=== PATIENT | female | born 1945 | race Caucasian/White ===

== ENCOUNTER 2017-11-16 18:50 | Emergency (ER) | payer MEDICARE, OTHER ==
[2014-06-28 11:19] VITALS: BMI 26.0
[~2017-11-16 18:50] MED LIST: BAYER CHEWABLE81 MG PO; CYCLOBENZAPRINE10 MG PO; CYCLOBENZAPRINE5 MG; FENOFIBRATE134 MG PO; FISH OIL 1,2001 CA1 PO; MELATONIN 3 MG1 TAB; PLAVIX75 MG PO; PRILOSEC20 MG PO; ZIAC 10-6.25 MG1 TAB PO; ZOCOR40 MG PO
[2017-11-16 20:24] LABS: BASOPHILS 0.3 % (0-2); EOSINOPHILS 0 % (0-7); HEMATOCRIT 42.4 % (36.0-48.0); IMMATURE GRANULOCYTES 0.3 % (0-5); LYMPHOCYTES 1.6 % (15-50); MCH 29.2 pg (26.0-34.0); MCV 88.3 fL (80.0-100.0); MEAN PLATELET VOLUME 11.1 fL (7.4-10.4); MONOCYTES 5.9 % (2-11); NEUTROPHILS 91.9 % (40-80); RDW 13.9 % (11.5-14.5); WBC 9.3 10x3/uL (4.8-10.8)
[2017-11-16 20:29] LABS: PLATELET COUNT 146 10x3/uL (130-400)
[2017-11-16 20:36] LABS: ALBUMIN 3.4 g/dL (3.4-5.0); ANION GAP 12.8 mmol/L (8-16); BILIRUBIN - TOTAL 0.85 mg/dL (0.2-1.3); CALCIUM 9.7 mg/dL (8.5-10.1); CREATININE - SERUM 2.5 mg/dL (0.6-1.3); POTASSIUM - SERUM 3.8 mmol/L (3.5-5.1); PROTEIN - SERUM 6.1 g/dL (6.4-8.2)
== END 2017-11-16 22:19 | disposition home or self-care (01) ==
LOC: D.ER 18:50
PROVIDERS: Physician Assistant Medical
DX: B34.9 Viral infection, unspecified (principal); R60.0 Localized edema; I10 Essential (primary) hypertension; J44.9 Chronic obstructive pulmonary disease, unspecified; F17.200 Nicotine dependence, unspecified, uncomplicated; I47.1 Supraventricular tachycardia

== ENCOUNTER → 2017-12-02 18:18 | Outpatient (CLI) | payer MEDICARE, OTHER ==
[2014-06-28 11:19] VITALS: BMI 26.0
[2017-12-02 18:57] LABS: ANION GAP 12.2 mmol/L (8-16); CALCIUM 9.7 mg/dL (8.5-10.1); CARBON DIOXIDE 35.7 mmol/L (21.0-32.0); CREATININE - SERUM 2.9 mg/dL (0.6-1.3); POTASSIUM - SERUM 3.9 mmol/L (3.5-5.1)
== END | disposition home or self-care (01) ==
LOC: D.LABREF 18:18
PROVIDERS: Nurse Practitioner
DX: I10 Essential (primary) hypertension (principal)

== ENCOUNTER 2018-01-03 08:40 | Outpatient (CLI) | payer MEDICARE, OTHER ==
[~2018-01-03] VITALS: Ht 157.5 cm; Wt 62.9 kg
--- NOTE | ~2018-01-03 | OP ---
PATIENT NAME: NEY CORRAL MEDICAL RECORD: [id number] :45 LOCATION:D.CAT ADMISSION DATE: SURGEON: ADDISON MEDRANO MD DATE OF OPERATION: 01/03/2018 PROCEDURES: 1. PTCA stent, LAD. 2. PTCA stent, left circumflex. 3. PTCA, LAD diagonal. 4. Left heart catheterization. 5. Selective coronary angiography. 6. Left ventriculogram. INDICATION: Angina and coronary artery disease. PROCEDURE IN DETAIL: After informed consent was obtained and after detailed explanation of risks, benefits as well as alternative therapies, the patient elected to proceed with angiogram and angioplasty. The right femoral area was prepped and draped in normal sterile fashion. The right femoral artery was cannulated via modified Seldinger technique with placement of 6-Luxembourgish sheath. All catheters exchanged through this sheath. FINDINGS: The left ventriculogram was performed in standard 30-degree MONIQUE view, reveals good cardiac wall motion throughout all segments. Overall ejection fraction 55% to 60%. SELECTIVE CORONARY ANGIOGRAPHY: 1. Left main showed no significant angiographic disease. 2. Left anterior descending has 80% stenosis in the proximal aspect. 3. Left circumflex has 80% stenosis proximally. 4. The right coronary has previously placed stents, these are widely patent with no significant restenosis. No disease elsewise throughout. PTCA STENT OF THE LAD AND CIRCUMFLEX: The LAD was addressed with a 3.0 x 18 mm Alberto, the circumflex with a 2.5 x 8 mm [place]. There was plaque shift into the diagonal. This was ballooned with a 2.5 balloon. Result was 0% residual throughout. OVERALL IMPRESSION: Successful percutaneous transluminal coronary angioplasty stent of the left anterior descending and circumflex, both going from 80% initial stenosis to 0% residual. TRANSINT:[id number] Voice Confirmation ID: [id number] DOCUMENT ID: [id number] ADDISON MEDRANO MD CC: [id number] DICTATION DATE: 01/03/18 1244 VOCATIONAL NURSING INSTRUCTOR: 01/03/18 1257 [facility] [address] [place] [address]
--- NOTE | ~2018-01-03 | HEMODYNAMI ---
PATIENT:NEY CORRAL MEDICAL RECORD: [id number] : 45 LOCATION:D.CAT ADMISSION DATE: 01/03/18 Generatedon:01/03/201812:14 Patient name: NEY CORRAL Patient #: [id number] SSN: : 1945 Date of study: 01/03/2018 Page: Of Hemodynamic Procedure Report Patient Data Patient Demographics Procedure consent was obtained First Name: NEY Gender: Female Last Name: ELLIS : 1945 [facility] Initial: K Age: 72 year(s) Patient #: [id number] Race: Unknown Additional ID: [id number] Contact details Address: [address] [place] [address] rd State: [place] City: [place] Zip code: [address] Past Medical History Allergies: No known allergies Admission Admission Data Admission Date: 01/03/2018 Admission Time: 8:40 Height (in.): 5.2 BSA: 0.27 (m2) Height (cm.): 13.21 BMI: 3588.15 (kg/m2) Weight (lbs.): 138 Weight (kg.): 62.6 Lab Results Lab Result Date: 01/03/2018 Lab Result Time: 10:55 Biochemistry Name Units Result Min Max BUN mg/dl 61 --(----)-* 7 18 Creatinine mg/dl 2.7 --(----)-* 0.6 1.3 CBC Name Units Result Min Max Hematocrit % 41.6 -*(----)-- 42 54 Hemoglobin g/dl 13.4 -*(----)-- 13.5 17.5 Procedure Procedure Types Cath Procedure Diagnostic Procedure [facility] w/Coronaries PCI Procedure Coronary Stent Coronary Stent Initial x2 PTCA PTCA Additional Miscellaneous Procedures Moderate Sedation up to 15 minutes Procedure Description Procedure Date Procedure Date: 01/03/2018 Procedure Start Time: 11:48 Procedure End Time: 12:10 Procedure Staff Name Function Jaziel Barragan RN Power And Recovery Superintendent Yaquelin Li RN Nurse Rich Chavez MD Performing Physician Sonya Penny RT Scrub Oscar Peres RT Monitor Procedure Data Cath Procedure Fluoroscopy Diagnostic fluoroscopy Total fluoroscopy Time: 6.9 time: 6.9 min min Diagnostic fluoroscopy Total fluoroscopy dose: dose: 299.46 mGy 299.46 mGy Contrast Material Contrast Material Type Amount (ml) Isovue 300 113 Entry Location Entry Primary Successful Side Size Upsize Upsize Entry Closure Succes sful Closure Location (Fr) 1 (Fr) 2 (Fr) Remarks Device Remarks Femoral Right 5 Fr 6 Fr Exoseal artery Short Estimated blood loss: 10 ml Diagnostic catheters Device Type Used For End Catheter Placement MULTIPACK Pigtail 5 Fr Procedure catheter MULTIPACK JL 4.0 5Fr Procedure catheter MULTIPACK 3DRC 5Fr Procedure catheter Procedure Complications No complications Procedure Medications Medication Administration Route Dosage Oxygen NC 2 l/min Lidocaine 2% added to field 20 Heparin Flush Bag added to field 2 bags (1000units/500ml NS) 0.9% NaCl I.V. 100 ml/hr Versed I.V. 1 mg Fentanyl I.V. 50 mcg Versed I.V. 1 mg Fentanyl I.V. 50 mcg 0.9% NaCl I.V. bolus 300 ml Heparin Bolus I.V. 4000 units Versed I.V. 1 mg Hemodynamics Rest BSA: 0.27 (m2) HGB: 13.4 (g/dl) O2 Consumption: Estimated: 24.16 (ml/min) O2 Con sumption indexed: Estimated:89.48 (ml/min/m) Heart Rate: 64 (bpm) Pressure Samples Time Site Value (mmHg) Purpose Heart Use Rate(bpm) 11:50 LV 147/4,44 Snapshot 62 Snapshots Pre Cath Intra NCS Post Cath Vital Signs Time Heart Resp SPO2 etCO2 NIBP (mmHg) Rhythm Pain Sedation Rate (ipm) (%) (mmHg) Status Level (bpm) 11:28:39 72 17 97 Measuring NSR 0 (11) 10(A) , No pain 11:34:09 63 16 98 0 161/74(132) NSR 0 (11) 10(A) , No pain 11:38:35 62 15 98 0 160/79(144) NSR 0 (11) 10(A) , No pain 11:43:00 62 13 98 0 157/82(130) NSR 0 (11) 10(A) , No pain 11:47:22 61 14 99 0 160/83(143) NSR 0 (11) 10(A) , No pain 11:51:46 61 14 100 0 162/79(126) NSR 0 (11) 10(A) , No pain 11:56:12 59 16 98 0 161/74(125) NSR 0 (11) 9(A) , No pain 12:00:32 60 15 98 0 146/77(116) NSR 0 (11) 9(A) , No pain 12:04:52 59 15 99 0 159/71(95) NSR 0 (11) 9(A) , No pain 12:09:19 59 15 98 0 173/78(138) NSR 0 (11) 10(A) , No pain Medications Time Medication Route Dose Verified Delivered Reason Notes Effectiveness by by 11:16:09 0.9% NaCl I.V. 300 Rich Buffie Per physician bolus ml Scott Li RN 11:16:32 Oxygen NC 2 Rich Buffie used for l/min Scott Li RN procedure 11:16:39 Lidocaine 2% added 20ml Rich Rich for local to vial Scott Chavez MD anesthetic field 11:16:45 Heparin Flush added 2 Rich Rich used for Bag to bags Scott Chavez MD procedure (1000units/500ml field NS) 11:47:14 Versed I.V. 1 mg Rich Buffie for sedation Scott Li RN 11:47:22 Fentanyl I.V. 50 Rich Buffie for sedation mcg Scott Li RN 11:49:34 Versed I.V. 1 mg Rich Buffie for sedation Scott Li RN 11:49:38 Fentanyl I.V. 50 Rich Buffie for sedation mcg Scott Li RN 11:51:23 0.9% NaCl I.V. 100 Rich Buffie Per physician ml/hr Scott Li RN 11:54:38 Heparin Bolus I.V. 4000 Rich Buffie for verifi ed units Scott Li RN anticoagulation with dr chavez 11:58:44 Versed I.V. 1 mg Rich Buffie for sedation Scott Li RN Procedure Log Time Note 10:58:10 Patient Height : 5.2 inches 10:58:13 Patient Weight : 138 lbs 10:58:38 Plan of Care:Hemodynamics will remain stable., Cardiac rhythm will remain stable., Comfort level will be maintained., Respiratory function will remain adequate., Patient/ family verbilizes understanding of procedure., Procedure tolerated without complication., Recovers from procedure without complications.. 10:58:39 Time tracking: Regular hours 10:58:41 Signed procedure consent form obtained from patient. 10:59:45 H&P Date Dictated: 01/02/2018 Within 30 days and on chart., H&P Addendum completed by physician on day of procedure. (MUST COMPLETE FOR ALL OUTPATIENTS). 11:10:56 Jaziel Barragan RN sent for patient. Start room use. 11:16:09 0.9% NaCl 300 ml I.V. bolus was administered by Yaquelin Li RN; Per physician; 11:16:32 Oxygen 2 l/min NC was administered by Yaquelin Li RN; used for procedure; 11:16:39 Lidocaine 2% 20ml vial added to field was administered by Rich Chavez MD; for local anesthetic; 11:16:45 Heparin Flush Bag (1000units/500ml NS) 2 bags added to field was administered by Rich Chavez MD; used for procedure; 11:17:30 Patient received from Pre/Post Procedure Room to CCL 3 Alert and oriented. Tansferred to table in Supine position. 11:17:34 Warm blankets applied, and ignacio hugger turned on for patient comfort. 11:17:35 Correct patient and procedure confirmed by team. 11:17:36 ECG and BP/O2 sat monitors applied to patient. 11:17:40 Snore? Yes 11:17:42 Sleep apnea? No 11:17:44 Deviated septum? No 11:17:46 Opens mouth fully? Yes 11:17:51 Sticks out tongue? Yes 11:17:54 Airway obstruction? No ? 11:17:58 Dentures? Yes in tight 11:26:50 Vital chart was started 11:30:05 Diagnostic Cath status Elective 11:30:07 Baseline sample Acquired. 11:30:10 Rhythm: sinus rhythm 11:30:12 Full Disclosure recording started 11:30:13 Pre-op teaching completed and patient verbalized understanding. 11:30:13 Pre-procedure instructions explained to patient. 11:30:14 Family in waiting room. 11:30:16 Patient NPO since Midnight. 11:30:22 Patient allergic to No known allergies 11:30:25 Is the patient allergic to Iodine/contrast media? No. 11:30:28 Is patient on blood thinner?Yes 11:30:31 ACC The patient was administered the following blood thiners within the last 24 hours: ACCPlavix 11:30:33 Patient diabetic? No. 11:30:37 Previous problem with sedation/anesthesia? No ? 11:30:38 Snore? Yes 11:30:39 Deviated septum? No 11:30:39 Sleep apnea? No 11:30:40 Opens mouth fully? Yes 11:30:41 Sticks out tongue? Yes 11:30:43 Airway obstruction? No ? 11:30:49 Dentures? Yes in tight 11:31:03 Pre procedure: right dorsailis pedis pulse Doppler 11:31:06 Patient pain scale 0/10 ?. 11:31:12 IV patent on arrival in left wrist with 0.9% NaCl at [facility]. 11:34:06 Lab Result : Hemoglobin 13.4 g/dl 11:34:06 Lab Result : Hematocrit 41.6 % 11:34:06 Lab Result : BUN 61 mg/dl 11:34:06 Lab Result : Creatinine 2.7 mg/dl 11:34:39 Lab results completed and on chart. 11:34:42 Right groin area was prepped with chlora-prep and draped in sterile fashion 11:34:43 Sharps counted by scrub and verified by R.N. 11:34:43 Alarms reviewed by R. N. 11:34:46 Use device set Femoral Dx 11:34:47 ACIST Syringe (35122) opened to sterile field. 11:34:48 Medline Cath Pack ([id number]) opened to sterile field. 11:34:49 Bag Decanter (2002) opened to sterile field. 11:34:50 ACIST Manifold (05239) opened to sterile field. 11:34:50 ACIST Hand Control (78664) opened to sterile field. 11:34:52 DIAGNOSTIC Multipack 5Fr catheter set (DO8528) opened to sterile field. 11:34:53 PERCUTANEOUS ENTRY 19GA needle opened to sterile field. 11:34:53 Tegaderm 4 x 4 (1626W) opened to sterile field. 11:34:54 DIAGNOSTIC WIRE .035 260cm J wire (113180) opened to sterile field. 11:34:54 SHEATH 5FR [place] (JYQ163) opened to sterile field. 11:46:50 Physician arrived 11:46:51 Final Timeout: patient, procedure, and site verified with staff and physician. All members of the team are in agreement. 11:46:51 --------ALL STOP TIME OUT------ 11:46:53 Right groin site verified by team. 11:46:55 Physical assessment completed. ASA score P 2 - A patient with mild systemic disease as per Rich Chavez MD. 11:46:58 Sedation plan: IV Moderate Sedation Medication:Versed, Fentanyl 11:47:14 Versed 1 mg I.V. was administered by Yaquelin Li RN; for sedation; 11:47:22 Fentanyl 50 mcg I.V. was administered by Yaquelin Li RN; for sedation; 11:48:55 Procedure started. 11:48:57 Local anesthetic to right femoral artery with Lidocaine 2% by Rich Chavez MD.INITIAL ACCESS ONLY 11:49:34 A 5 Fr sheath was inserted into the Right Femoral artery 11:49:34 Versed 1 mg I.V. was administered by Yaquelin Li RN; for sedation; 11:49:38 Fentanyl 50 mcg I.V. was administered by Yaquelin Li RN; for sedation; 11:50:08 A MULTIPACK Pigtail 5 Fr catheter was advanced over the wire and used for Procedure. 11:50:46 LV gram done using MONIQUE 11:50:49 Injector settings: Ml/sec: 10, Volume: 20, 11:50:53 EF : 55 % 11:50:54 Catheter exchanged over wire. 11:50:59 A MULTIPACK JL 4.0 5Fr catheter was advanced over the wire and used for Procedure. 11:51:23 0.9% NaCl 100 ml/hr I.V. was administered by Yaquelin Li RN; Per physician; 11:51:24 LCA angiography performed. 11:51:39 INFLATOR Merit BasixCompak (AA3546) opened to sterile field. 11:51:42 SHEATH 6FR [place] (PUX856) opened to sterile field. 11:51:52 Catheter exchanged over wire. 11:51:58 A MULTIPACK 3DRC 5Fr catheter was advanced over the wire and used for Procedure. 11:52:22 RCA angiography performed. 11:52:51 Catheter removed. 11:53:00 Sheath upsized to a 6 Fr Short. 11:54:38 Heparin Bolus 4000 units I.V. was administered by Yaquelin Li RN; for anticoagulation; verified with dr chavez 11:55:18 GUIDE 6FR XBLAD 3.5 catheter ([id number]) opened to sterile field. 11:55:40 GRAPHIX 182cm guide wire ([id number]) opened to sterile field. 11:55:54 6 Fr xblad 3.5 guide catheter was inserted over the wire 11:56:07 graphix wire advanced. 11:56:20 Wire advanced across lesion. 11:56:48 Inflation Number: 1 A RIRI RX 3.0 x 18 stent ([id number]) was prepped and advanced across the Mid LAD. The stent was deployed at 17 JONNY for 0:10 (min:sec). 11:57:47 Stent catheter was removed intact over wire. 11:58:39 Wire removed. 11:58:44 Versed 1 mg I.V. was administered by Yaquelin Li RN; for sedation; 11:58:46 CHOICE PT Extra Support 182cm wire ([id number]) opened to sterile field. 11:58:56 choice pt es wire advanced. 11:59:34 wire directed to diag 11:59:35 Wire advanced across lesion. 12:00:39 Inflation number: 1 A EUPHORA 2.5 x 10 Balloon ([id number]) was prepped and advanced across the 1st Diag, then inflated to 17 JONNY for 0:10 (min:sec). 12:00:48 Wire redirected to lad. 12:01:00 Inflation number: 2 The EUPHORA 2.5 x 10 Balloon ([id number]) was reinflated across the 1st Diag, to 17 JONNY for 0:10 (min:sec). 12:01:05 Balloon removed over the wire. 12:02:51 Wire redirected to circ. 12:03:13 Inflation number: 1 The EUPHORA 2.5 x 10 Balloon ([id number]) was reinflated across the Prox CX, to 9 JONNY for 0:10 (min:sec). 12:03:21 Balloon removed over the wire. 12:04:40 Inflation Number: 2 A RIRI RX 2.5 x 08 stent ([id number]) was prepped and advanced across the Prox CX. The stent was deployed at 13 JONNY for 0:10 (min:sec). 12:05:30 Wire removed. 12:05:30 Stent catheter was removed intact over wire. 12:05:31 Guide catheter removed. 12:05:37 EXOSEAL 6Fr (EX600) opened to sterile field. 12:05:44 Sheath removed intact; hemostasis achieved with Exoseal to the Right Femoral artery. 12:05:45 Procedure ended.(Physican Out) 12:07:46 Fluoroscopy time 06.90 minutes. 12:07:53 Fluoroscopy dose: 299.46 mGy 12:07:53 Flurop Dose total: 299.46 12:08:18 Contrast amount:Isovue 300 113ml. 12:08:20 Sharps counted by scrub and verified by R.N. 12:08:24 Insertion/operative site no bleeding no hematoma. 12:08:27 Post-op/insertion site Right Femoral artery dressed using a 4 x 4 and Tegaderm. 12:08:31 Post right femoral artery:stable, soft, clean and dry 12:08:32 Post Procedure Pulses reassessed and unchanged 12:08:35 Post-procedure physical assessment completed. ASA score P 2 - A patient with mild systemic disease as per Rich Chavez MD. 12:08:37 Post procedure rhythm: unchanged. 12:08:39 Estimated blood loss: 10 ml 12:08:40 Post procedure instruction explained to patient.Patient verbalizes understanding. 12:08:41 Patient needs reinforcement of post procedure teaching. 12:08:56 Procedure type changed to Cath procedure, Diagnostic procedure, LHC, LHC w/Coronaries, PCI procedure, Coronary Stent, Coronary Stent Initial x2, PTCA, PTCA Additional, Miscellaneous Procedures, Moderate Sedation up to 15 minutes 12:10:31 Procedure and supply charges have been captured, reviewed, submitted and are correct. 12:10:33 Procedure Complication : No complications 12:10:35 See physician's report for complete and final results. 12:10:35 Vital chart was stopped 12:10:37 Report given to Pre/Post Procedure Room. 12:10:38 Patient transfered to Pre/Post Procedure Room with Stretcher. 12:10:43 Full Disclosure recording stopped 12:10:43 Procedure ended. 12:12:57 End room use (Document Last) Intervention Summary Intervention Notes Time ActionType Lesion and Equipment Used Action# Pressure Duration Attributes 11:56:48 Place stent Mid LAD RIRI RX 3.0 x 1 17 00:10 18 stent ([id number]) 12:00:39 Inflate 1st Diag EUPHORA 2.5 x 1 17 00:10 balloon 10 Balloon ([id number]) 12:01:00 Reinflate 1st Diag EUPHORA 2.5 x 2 17 00:10 balloon 10 Balloon ([id number]) 12:03:13 Reinflate Prox CX EUPHORA 2.5 x 1 9 00:10 balloon 10 Balloon ([id number]) 12:04:40 Place stent Prox CX RIRI RX 2.5 x 2 13 00:10 08 stent ([id number]) Device Usage Item Name Manufacture Quantity Catalog Number Hospital Part Current M inimal Lot# / Charge Number Stock Stock Serial# Code ACIST Syringe Acist 1 71556 017285 999670 279568 2 0 (70438) Medical Systems Inc Medline Cath Cardinal 1 [id number] 526245 38061 708680 5 Pack Health ([id number]) Bag Decanter Microtek 1 2001S 285292 80466 574078 5 (2001S) Medical Inc. ACIST Hand Acist 1 23954 880614 916461 140405 5 Control Medical (23618) Systems Inc ACIST Manifold Acist 1 67005 558982 398261 254188 5 (84402) Medical Systems Inc DIAGNOSTIC Cardinal 1 GA8086 545499 08878 695319 3 0 Multipack 5Fr Health catheter set (VI6628) Tegaderm 4 x 4 3M 1 1626W 078043 464656 819853 5 (1626W) PERCUTANEOUS Cook Medical 1 T66669 986511 674243 5 ENTRY 19GA needle SHEATH 5FR Terumo 1 EQH265 554557 196136 932520 4 0 [place] (IOI276) DIAGNOSTIC [facility] [place] 1 714219 284558 004529 074138 3 0 WIRE .035 260cm J wire (048832) MULTIPACK Cardinal 1 805007 5 Pigtail 5 Fr Health catheter MULTIPACK JL Cardinal 1 001261 5 4.0 5Fr Health catheter INFLATOR Merit Merit 1 QR1593 384223 809985 776995 1 5 [facility] Medical (UX2672) SHEATH 6FR Terumo 1 FBE496 634126 877508 438571 4 0 [place] ([id number]) MULTIPACK 3DRC Cardinal 1 210809 5 5Fr catheter Health GUIDE 6FR Cardinal 1 [id number] 840593 448702 606349 1 0 XBLAD 3.5 Health catheter ([id number]) GRAPHIX 182cm [place] 1 [id number] 999267 038095 225653 5 guide wire Scientific ([id number]) RIRI RX 3.0 x Medtronic 1 [id number] 208699 6358354 626483 5 [id number] 18 stent ([id number]) CHOICE PT [place] 1 [id number] 065710 120183 542019 5 Extra Support Scientific 182cm wire ([id number]) EUPHORA 2.5 x Medtronic 1 [id number] 947642 631361 929052 5 [id number] 10 Balloon ([id number]) RIRI RX 2.5 x Medtronic 1 [id number] 565632 1065038 806528 5 [id number] 08 stent ([id number]) EXOSEAL 6Fr Cardinal 1 EX600 839763 950827 084221 1 0 (EX600) Health Signature Audit [place] Stage Time Signature Unsigned Intra-Procedure 01/03/2018 Oscar Peres 12:14:03 PM RT(R) Signatures Monitor : Oscar Peres RT Signature : Date : Time : [facility] [address] [facility] [address]
[2018-01-03] MEDS ORDERED: ISOSORBIDE MONO30 M1 PO (10:02)
[2018-01-03] MEDS ORDERED: HYDROCODONE-APA1 TAB PO (10:03)
[2018-01-03] MEDS ORDERED: PREDNISONE10 MG PO (10:04)
[2018-01-03 10:19] VITALS: BP 142/76; BMI 25.3
[2018-01-03 11:09] LABS: BASOPHILS 0.1 % (0-2); HEMATOCRIT 41.6 % (36.0-48.0); HEMOGLOBIN 13.4 g/dL (12-16); IMMATURE GRANULOCYTES 0.3 % (0-5); LYMPHOCYTES 13.9 % (15-50); MCH 27.3 pg (26.0-34.0); MCHC 32.2 g/dL (31.0-37.0); MCV 84.7 fL (80.0-100.0); MEAN PLATELET VOLUME 10.9 fL (7.4-10.4); MONOCYTES 8.9 % (2-11); NEUTROPHILS 74.8 % (40-80); RBC 4.91 10x6/uL (4.00-5.40); RDW 15.4 % (11.5-14.5); WBC 9.5 10x3/uL (4.8-10.8)
[2018-01-03 11:24] LABS: ANION GAP 12.3 mmol/L (8-16); CALCIUM 9.3 mg/dL (8.5-10.1); CARBON DIOXIDE 28.4 mmol/L (21.0-32.0); CREATININE - SERUM 2.7 mg/dL (0.6-1.3); POTASSIUM - SERUM 3.7 mmol/L (3.5-5.1)
[2018-01-03 11:32] LABS: PLATELET COUNT 191 10x3/uL (130-400)
[2018-01-03 18:41] VITALS: Ht 157.5 cm; Wt 62.9 kg
[2018-01-03 20:46] VITALS: BP 186/77
[2018-01-04 06:57] VITALS: BP 195/72
== END 2018-01-04 10:07 | disposition home or self-care (01) ==
LOC: D.CATH 08:40 → D.M2 18:05 → D.CATH 01-04 10:07
PROVIDERS: Internal Medicine Interventional Cardiology
DX: I25.119 Atherosclerotic heart disease of native coronary artery with unspecified angina pectoris (principal); E78.5 Hyperlipidemia, unspecified; I10 Essential (primary) hypertension; R06.02 Shortness of breath; Z01.812 Encounter for preprocedural laboratory examination
CPT/HCPCS: 93458; 92921; C9600 ×2

== ENCOUNTER 2018-01-25 16:08 | Inpatient (IN) | payer MEDICARE, OTHER ==
[~2018-01-25] VITALS: Ht 157.5 cm; Wt 62.1 kg
--- NOTE | ~2018-01-25 | CN ---
PATIENT NAME:NEY BAINS MEDICAL RECORD: [id number] : 45 LOCATION:D. D.2130 ADMIT DATE: 01/25/18 ACCOUNT: [id number] CONSULTING PHYSICIAN: ZEKE RAMÍREZ MD REFERRING PHYSICIAN: JASMINA JORGENSEN MD DATE OF CONSULTATION: 01/26/2018 CONSULT REQUESTING PHYSICIAN: Dr. Jasmina Jorgensen. REASON FOR CONSULTATION: Pneumonia, left lower lobe, congestive heart failure, tfwkb-jk-zujdeqo congestive heart failure flareup. HISTORY OF PRESENT ILLNESS: Ms. Bains is a 72-year-old female who was admitted with retrosternal chest pain and also she has worsening shortness of breath. She was evaluated and found out she has questionable pneumonia, left lower lobe and admitted to the hospital. Denies any fever and chills, no night sweats. She does have orthopnea. PAST MEDICAL HISTORY: 1. COPD. 2. Congestive heart failure. 3. Hypertension. 4. Hyperlipidemia. 5. Coronary artery disease. 6. Chronic dependent edema in the lower extremity. 7. Hypertension. PAST SURGICAL HISTORY: 1. She has cardiac catheterization and stent placement. 2. Tubal ligation. 3. Carotid endarterectomy. ALLERGIES: She is allergic to PREDNISONE. MEDICATIONS: Timescape is reviewed. PERSONAL SOCIAL HISTORY: The patient was a smoker. She just quit it last year. FAMILY HISTORY: Noncontributory. PHYSICAL EXAMINATION: GENERAL: Now, the patient is lying comfortably in bed. She is not in acute distress. VITAL SIGNS: The blood pressure 135/80, pulse is 88, respiration is 17, temperature 98.8, and SpO2 is 93% on 3 liters nasal cannula. HEENT: Conjunctivae are pink. Sclerae nonicteric. NECK: Neck is supple. There is elevated JVD. CHEST: There is dullness on percussion at the left base. There are bilateral crackles. No wheezing. HEART: Rhythm regular. Normal heart sound. There is grade II/ systolic murmur. ABDOMEN: Abdomen is soft. Bowel sounds present. No hepatosplenomegaly. RECTAL: Deferred. EXTREMITIES: No cyanosis, no clubbing, and no pedal edema. SKIN: The skin is warm, normal turgor. CONSULT REPORT [id number] NEY BAINS CENTRAL NERVOUS SYSTEM: The patient is awake and alert. There are no obvious cranial nerve abnormalities. The gait was not tested. There is pedal edema. IMAGING: Chest radiograph, there is a left lower lobe infiltrate. There are small right pleural effusion and possible left large pleural effusion. OTHER LABORATORY DATA: CBC: WBC 10.1, hemoglobin 12.8, hematocrit 40.2, and platelet count 199. Chemistry: Sodium 136, potassium is 3.8, BUN is 72, and creatinine 2.3. The INR is 1.16. IMPRESSION: Acute hypoxic respiratory failure due to; 1. Pulmonary edema. 2. Possible pneumonia, left lower lobe consistent with community-acquired pneumonia. 3. Pleural effusion, left more than the right. 4. Cfvkr-iq-nmlgotj congestive heart failure flareup consistent with chronic systolic dysfunction. 5. Lqslwfzx-qc-cghgyj pulmonary hypertension, most likely this is secondary to left heart failure. 6. Chronic kidney disease. 7. Ex-smoker. 8. Chronic obstructive pulmonary disease exacerbation. RECOMMENDATION: 1. Continue supplemental oxygen. Continue empiric Zithromax and Rocephin. 2. Albuterol/ipratropium nebulizer. Start Brovana and budesonide nebulizer. Continue methylprednisolone IV. I will check D-dimer. If it is positive, we will proceed with V/Q scan. 3. Bilateral decubitus chest radiograph. Dr. Jorgensen, thank you for involving me in the care of Ms. Bains. TRANSINT:[id number] Voice Confirmation ID: [id number] DOCUMENT ID: [id number] ZEKE RAMÍREZ MD at 1340 CC: JASMINA JORGENSEN [id number] DICTATION DATE: 01/26/181701 VEST BASTER: 01/27/186 DIS IN 01/30/18 [facility] [address] [place] [address]
[~2018-01-25 16:08] MED LIST changes: +HYDROCODONE-APA1 TAB PO; +ISOSORBIDE MONO30 M1 PO; -MELATONIN 3 MG1 TAB; +MELATONIN5 MG PO; +PREDNISONE10 MG PO
[2018-01-25 17:04] LABS: BASOPHILS 0.2 % (0-2); EOSINOPHILS 0.1 % (0-7); HEMATOCRIT 40.2 % (36.0-48.0); HEMOGLOBIN 12.8 g/dL (12-16); IMMATURE GRANULOCYTES 0.2 % (0-5); LYMPHOCYTES 7.6 % (15-50); MCH 26.8 pg (26.0-34.0); MCHC 31.8 g/dL (31.0-37.0); MCV 84.3 fL (80.0-100.0); MEAN PLATELET VOLUME 9.6 fL (7.4-10.4); MONOCYTES 7.5 % (2-11); NEUTROPHILS 84.4 % (40-80); PLATELET COUNT 199 10x3/uL (130-400); RBC 4.77 10x6/uL (4.00-5.40); RDW 15.6 % (11.5-14.5); WBC 10.1 10x3/uL (4.8-10.8)
[2018-01-25 17:11] LABS: INR 1.16 (0.85-1.17); PROTIME 14.4 SECONDS (11.6-15.0)
[2018-01-25 17:12] LABS: APTT 41.1 SECONDS (22.8-39.4)
[2018-01-25 17:18] LABS: ALBUMIN 3.3 g/dL (3.4-5.0); ANION GAP 11.5 mmol/L (8-16); BILIRUBIN - TOTAL 1.57 mg/dL (0.2-1.3); CALCIUM 9.9 mg/dL (8.5-10.1); CREATININE - SERUM 2.4 mg/dL (0.6-1.3); POTASSIUM - SERUM 3.5 mmol/L (3.5-5.1); PROTEIN - SERUM 6.4 g/dL (6.4-8.2)
[2018-01-25 17:25] LABS: TROPONIN-I 0.059 ng/mL (0.000-0.060)
[2018-01-25 20:32] VITALS: BP 202/85
[2018-01-25 23:49] VITALS: BP 134/68
[2018-01-26 03:52] VITALS: BP 202/85; BMI 25.6
[2018-01-26 05:55] VITALS: BP 132/55
[2018-01-26 06:03] LABS: BASOPHILS 0.1 % (0-2); EOSINOPHILS 0 % (0-7); HEMATOCRIT 38.3 % (36.0-48.0); IMMATURE GRANULOCYTES 0.1 % (0-5); LYMPHOCYTES 5.4 % (15-50); MCH 26.1 pg (26.0-34.0); MCHC 31.3 g/dL (31.0-37.0); MCV 83.4 fL (80.0-100.0); MEAN PLATELET VOLUME 10.5 fL (7.4-10.4); MONOCYTES 1.7 % (2-11); NEUTROPHILS 92.7 % (40-80); PLATELET COUNT 186 10x3/uL (130-400); RBC 4.59 10x6/uL (4.00-5.40); RDW 15.8 % (11.5-14.5); WBC 8.1 10x3/uL (4.8-10.8)
[2018-01-26 06:32] LABS: ALBUMIN 2.8 g/dL (3.4-5.0); ANION GAP 17.6 mmol/L (8-16); BILIRUBIN - TOTAL 1.2 mg/dL (0.2-1.3); CALCIUM 8.8 mg/dL (8.5-10.1); CARBON DIOXIDE 21.2 mmol/L (21.0-32.0); CREATININE - SERUM 2.3 mg/dL (0.6-1.3); POTASSIUM - SERUM 3.8 mmol/L (3.5-5.1); PROTEIN - SERUM 5.9 g/dL (6.4-8.2)
[2018-01-26 08:38] VITALS: BP 153/53
[2018-01-26 11:24] VITALS: BP 144/49
[2018-01-26 16:05] VITALS: BP 135/80
[2018-01-27 00:30] VITALS: BP 92/68
[2018-01-27 06:11] LABS: BASOPHILS 0 % (0-2); EOSINOPHILS 0 % (0-7); HEMATOCRIT 34.6 % (36.0-48.0); HEMOGLOBIN 11.1 g/dL (12-16); IMMATURE GRANULOCYTES 0.2 % (0-5); LYMPHOCYTES 3.1 % (15-50); MCH 26.4 pg (26.0-34.0); MCHC 32.1 g/dL (31.0-37.0); MCV 82.2 fL (80.0-100.0); MEAN PLATELET VOLUME 10.4 fL (7.4-10.4); MONOCYTES 3.6 % (2-11); NEUTROPHILS 93.1 % (40-80); PLATELET COUNT 162 10x3/uL (130-400); RBC 4.21 10x6/uL (4.00-5.40); RDW 15.5 % (11.5-14.5)
[2018-01-27 06:15] LABS: WBC 11.1 10x3/uL (4.8-10.8)
[2018-01-27 06:24] VITALS: BP 143/58
[2018-01-27 06:40] LABS: ALBUMIN 2.6 g/dL (3.4-5.0); BILIRUBIN - TOTAL 0.52 mg/dL (0.2-1.3); CARBON DIOXIDE 24.7 mmol/L (21.0-32.0); CREATININE - SERUM 2.8 mg/dL (0.6-1.3); POTASSIUM - SERUM 3.7 mmol/L (3.5-5.1); PROTEIN - SERUM 5.6 g/dL (6.4-8.2)
[2018-01-27 08:21] VITALS: BP 136/51
[2018-01-27 12:26] VITALS: BP 166/62
[2018-01-27 13:20] VITALS: Ht 157.5 cm; Wt 62.1 kg
[2018-01-27 15:26] VITALS: BP 158/70
[2018-01-27 20:00] VITALS: BP 125/68
[2018-01-28] VITALS: BP 102/68
[2018-01-28 04:00] VITALS: BP 130/66
[2018-01-28 05:57] LABS: BASOPHILS 0 % (0-2); EOSINOPHILS 0 % (0-7); HEMATOCRIT 38.9 % (36.0-48.0); HEMOGLOBIN 12.6 g/dL (12-16); IMMATURE GRANULOCYTES 0.3 % (0-5); LYMPHOCYTES 2.7 % (15-50); MCH 26.5 pg (26.0-34.0); MCHC 32.4 g/dL (31.0-37.0); MCV 81.7 fL (80.0-100.0); MEAN PLATELET VOLUME 10.9 fL (7.4-10.4); PLATELET COUNT 173 10x3/uL (130-400); RBC 4.76 10x6/uL (4.00-5.40); RDW 15.5 % (11.5-14.5); WBC 9.4 10x3/uL (4.8-10.8)
[2018-01-28 06:20] LABS: ANION GAP 16.2 mmol/L (8-16); BILIRUBIN - TOTAL 0.62 mg/dL (0.2-1.3); CALCIUM 9.1 mg/dL (8.5-10.1); CARBON DIOXIDE 23.9 mmol/L (21.0-32.0); CREATININE - SERUM 3.2 mg/dL (0.6-1.3); POTASSIUM - SERUM 4.1 mmol/L (3.5-5.1); PROTEIN - SERUM 6.4 g/dL (6.4-8.2)
[2018-01-28 07:54] VITALS: BP 122/74
[2018-01-28 10:41] VITALS: BP 126/72
[2018-01-28 15:15] VITALS: BP 121/68
[2018-01-28 20:00] VITALS: BP 175/73
[2018-01-29] VITALS: BP 150/68
[2018-01-29 04:00] VITALS: BP 170/74
[2018-01-29 07:54] VITALS: BP 124/73
[2018-01-29 11:42] VITALS: BP 126/77
[2018-01-29 12:49] LABS: BASOPHILS 0.1 % (0-2); EOSINOPHILS 0 % (0-7); HEMOGLOBIN 12.5 g/dL (12-16); IMMATURE GRANULOCYTES 0.1 % (0-5); LYMPHOCYTES 2.7 % (15-50); MCH 26.5 pg (26.0-34.0); MCHC 32.1 g/dL (31.0-37.0); MCV 82.6 fL (80.0-100.0); MEAN PLATELET VOLUME 10.5 fL (7.4-10.4); NEUTROPHILS 88.1 % (40-80); PLATELET COUNT 146 10x3/uL (130-400); RBC 4.72 10x6/uL (4.00-5.40); RDW 15.6 % (11.5-14.5); WBC 8.9 10x3/uL (4.8-10.8)
[2018-01-29 13:12] LABS: ALBUMIN 3.2 g/dL (3.4-5.0); ANION GAP 19.5 mmol/L (8-16); BILIRUBIN - TOTAL 0.7 mg/dL (0.2-1.3); CARBON DIOXIDE 22.7 mmol/L (21.0-32.0); CREATININE - SERUM 2.8 mg/dL (0.6-1.3); POTASSIUM - SERUM 4.2 mmol/L (3.5-5.1); PROTEIN - SERUM 6.1 g/dL (6.4-8.2)
[2018-01-29 16:20] VITALS: BP 120/67
[2018-01-30 04:00] VITALS: BP 202/87
[2018-01-30 09:23] VITALS: BP 175/73
[2018-01-30] MEDS ORDERED: ZITHROMAX250 MG PO (09:46)
[2018-01-30] MEDS ORDERED: OMNICEF300 MG PO (09:47)
[2018-01-30] MEDS ORDERED: PREDNISONE20 MG PO (09:48)
[2018-01-30] MEDS ORDERED: ATROVENT 0.02%2.5 ML UPD (13:04)
[2018-01-30] MEDS ORDERED: SYMBICORT 16010.2 GM INH (13:04)
[2018-01-30] MEDS ORDERED: PROAIR HFA8.5 GM INH (13:14)
[2018-01-30] MEDS ORDERED: PROVENTIL/2.5 MG/3 M INH (13:16)
== END 2018-01-30 15:59 | disposition home health service (06) | DRG 291 ==
LOC: D.ER 16:08 → D.EDHOLD 17:42 → D.M2 17:42
PROVIDERS: Emergency Medicine; Family Medicine
DX: I13.0 Hypertensive heart and chronic kidney disease with heart failure and stage 1 through stage 4 chronic kidney disease, or unspecified chronic kidney disease (principal); I50.33 Acute on chronic diastolic (congestive) heart failure; J18.9 Pneumonia, unspecified organism; J96.21 Acute and chronic respiratory failure with hypoxia; J44.0 Chronic obstructive pulmonary disease with (acute) lower respiratory infection; J44.1 Chronic obstructive pulmonary disease with (acute) exacerbation; N17.9 Acute kidney failure, unspecified; J98.11 Atelectasis; N18.9 Chronic kidney disease, unspecified; I08.1 Rheumatic disorders of both mitral and tricuspid valves; I27.20 Pulmonary hypertension, unspecified; I42.9 Cardiomyopathy, unspecified; E78.5 Hyperlipidemia, unspecified; Z87.891 Personal history of nicotine dependence

== ENCOUNTER 2018-02-18 08:45 | Inpatient (IN) | payer MEDICARE, OTHER ==
[~2018-02-18] VITALS: Ht 157.5 cm; Wt 64.6 kg
--- NOTE | ~2018-02-18 | EC ---
PATIENT:NEY CORRAL DATE OF SERVICE: 02/18/18 SEX: F MEDICAL RECORD: [id number] DATE OF : 45 LOCATION:D.M2 D.211 AGE OF PATIENT: 72 ADMISSION DATE: 02/18/18 REFERRING PHYSICIAN: INTERPRETING PHYSICIAN: VERITO ROBLERO MD ECHOCARDIOGRAM REPORT ECHO CHARGES 4 ECHO COMPLETE Date of Procedure: 02/18 CLINICAL DIAGNOSIS: CHF ECHOCARDIOGRAPHIC MEASUREMENTS (adult normal given) AC root (d.<3.7cm) 3.3 cm LV Septum d (<1.2 cm> 1.8 cm Valve Excursion 1.8 cm LV Septum (systole) 1.9 cm Left Atria (s.<4.0cm> 3.4 cm LVPW d(<1.2cm) 1.8 cm RV (d.<2.3cm) 5.0 cm LVPW (sytole) 1.9 cm LV diastole(<5.6CM) 4.0 cm MV E-F(>70mm/sec) cm LV systole 2.6 cm LVOT Diameter 1.6 cm MV exc.(>10mm) 1.0 cm Est.ejection fraction (50-75%) % DOPPLER: LVIT cm/sec A 125 cm/sec E 77.0 cm/sec LA cm/sec RVSP 79 mmHg LVOT 94 cm/sec AOP1/2T m/s Asc. Ao 153 cm/sec RVOT 51 cm/sec RA cm/sec PA 90 cm/sec AV Gradient Peak 9.31 mmHg AV Mean 4.73 mmHg AV Area 1.3 cm MV Gradient Peak 6.72 mmHg MV Mean 2.21 mmHg MV Area cm COMMENTS: Letter Of Credit Clerk: 2 GINGER CASTRO Gasket Notcher: 4 Dr. Roblero TAPE# PACS Pericardial Effusion N DATE OF SERVICE: PROCEDURE: Transthoracic echocardiogram. FINDINGS: 1. The left ventricle has moderate concentric left ventricular hypertrophy. Inflow characteristics are consistent with diastolic dysfunction. Ejection fraction shows global hypokinesis. Ejection fraction of 40% to 45%. The patient was seen to be bradycardic throughout the exam. 2. Left atrium was difficult to visualize, but appears to be normal size. ECHOCARDIOGRAM REPORT [id number] NEY CORRAL 3. The mitral valve appears to be thickened. It is difficult to visualize. There is mitral annular calcification. There is moderate eccentric mitral regurgitation. 4. The right atrium is severely dilated as well as the right ventricle. There is moderate hypokinesis throughout the right atrium and the right ventricle. 5. The tricuspid valve has severe tricuspid regurgitation, appears to be somewhat eccentric in nature. The right ventricular systolic pressure is severely elevated at 75-80 mmHg. 6. Pulmonic valve is not well visualized. There is no pericardial effusion. Interatrial septum has a bowing pattern consistent with a mild pressure overload. CONCLUSIONS: The patient has evidence of mild cardiomyopathy with severe pulmonary hypertension and related dilatation of the right-sided structures. TRANSINT:[id number] Voice Confirmation ID: [id number] DOCUMENT ID: [id number] VERITO ROBLERO MD at 0922 CC: [id number] DICTATION DATE: 02/19/18826 TIMBER FRAMER: 02/19/18 1106 ADM IN [facility] [address] [place] [id number]
[~2018-02-18 08:45] MED LIST changes: +ATROVENT 0.02%2.5 ML UPD; +OMNICEF300 MG PO; +PREDNISONE20 MG PO; +PROAIR HFA8.5 GM INH; +PROVENTIL/2.5 MG/3 M INH; +SYMBICORT 16010.2 GM INH; +ZITHROMAX250 MG PO
[2018-02-18 10:10] LABS: BASOPHILS 0.2 % (0-2); EOSINOPHILS 0.7 % (0-7); HEMATOCRIT 35.4 % (36.0-48.0); HEMOGLOBIN 11.7 g/dL (12-16); IMMATURE GRANULOCYTES 0.1 % (0-5); LYMPHOCYTES 7.8 % (15-50); MCH 26.6 pg (26.0-34.0); MCHC 33.1 g/dL (31.0-37.0); MCV 80.5 fL (80.0-100.0); MEAN PLATELET VOLUME 9.7 fL (7.4-10.4); MONOCYTES 10.5 % (2-11); NEUTROPHILS 80.7 % (40-80); PLATELET COUNT 207 10x3/uL (130-400); WBC 8.2 10x3/uL (4.8-10.8)
[2018-02-18 10:29] LABS: ALBUMIN 3.1 g/dL (3.4-5.0); ALKALINE PHOSPHATASE 59 U/L (46-116); ALT (SGPT) 14 U/L (10-68); BILIRUBIN - TOTAL 0.92 mg/dL (0.2-1.3); CALC OSMOLALITY 275 mosm/kg (275-300); CALCIUM 8.5 mg/dL (8.5-10.1); CARBON DIOXIDE 28.8 mmol/L (21.0-32.0); CHLORIDE - SERUM 91 mmol/L (98-107); CREATININE - SERUM 3.3 mg/dL (0.6-1.3); GLUCOSE 115 mg/dL (74-106); POTASSIUM - SERUM 3.9 mmol/L (3.5-5.1); SODIUM 128 mmol/L (136-145); UREA NITROGEN 63 mg/dL (7-18); eGFR NON AFRICAN AMERICAN 15 mL/min (90-120)
[2018-02-18 10:41] LABS: CKMB 2.3 U/L (0.0-3.6); CREATINE KINASE 55 UL (21-215); TROPONIN-I 0.031 ng/mL (0.000-0.060)
[2018-02-18 11:05] LABS: PRO BNP 38108 pg/mL (0-125)
[2018-02-18 14:19] LABS: CKMB 2.7 U/L (0.0-3.6); CREATINE KINASE 61 UL (21-215); TROPONIN-I 0.027 ng/mL (0.000-0.060)
[2018-02-18 15:20] VITALS: BP 199/75; BMI 27.7
[2018-02-18 16:34] VITALS: BP 199/75
[2018-02-18 18:54] LABS: BASOPHILS 0.5 % (0-2); EOSINOPHILS 2.1 % (0-7); HEMATOCRIT 37.4 % (36.0-48.0); HEMOGLOBIN 12.3 g/dL (12-16); IMMATURE GRANULOCYTES 0.3 % (0-5); LYMPHOCYTES 11.8 % (15-50); MCH 26.5 pg (26.0-34.0); MCHC 32.9 g/dL (31.0-37.0); MCV 80.4 fL (80.0-100.0); MEAN PLATELET VOLUME 9.7 fL (7.4-10.4); NEUTROPHILS 74.3 % (40-80); PLATELET COUNT 225 10x3/uL (130-400); RBC 4.65 10x6/uL (4.00-5.40); RDW 17.1 % (11.5-14.5); WBC 7.8 10x3/uL (4.8-10.8)
[2018-02-18 19:20] LABS: ALBUMIN 3.4 g/dL (3.4-5.0); ALKALINE PHOSPHATASE 67 U/L (46-116); ALT (SGPT) 17 U/L (10-68); AMYLASE - SERUM 42 U/L (25-115); CALC OSMOLALITY 283 mosm/kg (275-300); CALCIUM 8.8 mg/dL (8.5-10.1); CARBON DIOXIDE 29.9 mmol/L (21.0-32.0); CHLORIDE - SERUM 92 mmol/L (98-107); CKMB 2.8 U/L (0.0-3.6); CREATINE KINASE 71 UL (21-215); GLUCOSE 103 mg/dL (74-106); POTASSIUM - SERUM 3.4 mmol/L (3.5-5.1); PROTEIN - SERUM 6.1 g/dL (6.4-8.2); SODIUM 133 mmol/L (136-145); TROPONIN-I 0.031 ng/mL (0.000-0.060); UREA NITROGEN 63 mg/dL (7-18); eGFR NON AFRICAN AMERICAN 16 mL/min (90-120)
[2018-02-18 21:30] VITALS: BP 187/72
[2018-02-19 01:12] VITALS: BP 156/57
[2018-02-19 01:33] LABS: CKMB 2.5 U/L (0.0-3.6); CREATINE KINASE 45 UL (21-215); TROPONIN-I 0.041 ng/mL (0.000-0.060)
[2018-02-19 05:21] VITALS: BP 159/57
[2018-02-19 08:09] VITALS: BP 162/62
[2018-02-19 10:47] VITALS: Ht 157.5 cm; Wt 64.6 kg
[2018-02-19 11:34] VITALS: BP 170/66
[2018-02-19 15:36] VITALS: BP 164/56
[2018-02-19 18:58] LABS: ANION GAP 12.8 mmol/L (8-16); CALCIUM 8.8 mg/dL (8.5-10.1); CARBON DIOXIDE 32.4 mmol/L (21.0-32.0); CREATININE - SERUM 2.8 mg/dL (0.6-1.3)
[2018-02-19 19:06] LABS: POTASSIUM - SERUM 4.2 mmol/L (3.5-5.1)
[2018-02-19 20:11] VITALS: BP 197/84
[2018-02-20] VITALS: BP 165/80
[2018-02-20 05:33] VITALS: BP 161/78
[2018-02-20 06:33] LABS: CALCIUM 8.9 mg/dL (8.5-10.1); CARBON DIOXIDE 33.1 mmol/L (21.0-32.0); CREATININE - SERUM 2.6 mg/dL (0.6-1.3); POTASSIUM - SERUM 4.1 mmol/L (3.5-5.1)
[2018-02-20 08:33] VITALS: BP 134/59
[2018-02-20 13:08] VITALS: BP 158/80
[2018-02-20 16:03] VITALS: BP 184/73
[2018-02-20 20:00] VITALS: BP 184/81
[2018-02-21] VITALS: BP 160/70
[2018-02-21 04:00] VITALS: BP 170/71
[2018-02-21] MEDS ORDERED: HYDRALAZINE HCL10 MG PO (09:49)
[2018-02-21] MEDS ORDERED: LASIX40 MG PO (09:50)
[2018-02-21 09:56] VITALS: BP 176/82
== END 2018-02-21 13:30 | disposition home health service (06) | DRG 291 ==
LOC: D.ER 08:45 → OBSVTIME 12:27 → D.EDHOLD 12:27 → D.M2 13:33 → D.SDCHOLD 02-19 13:15 → D.M2 02-19 13:15
PROVIDERS: Family Medicine; Internal Medicine Cardiovascular Disease
DX: I13.0 Hypertensive heart and chronic kidney disease with heart failure and stage 1 through stage 4 chronic kidney disease, or unspecified chronic kidney disease (principal); I50.23 Acute on chronic systolic (congestive) heart failure; N18.9 Chronic kidney disease, unspecified; I25.10 Atherosclerotic heart disease of native coronary artery without angina pectoris; I73.9 Peripheral vascular disease, unspecified; K21.9 Gastro-esophageal reflux disease without esophagitis; J44.9 Chronic obstructive pulmonary disease, unspecified; F32.9 Major depressive disorder, single episode, unspecified; I50.814 Right heart failure due to left heart failure; Z87.891 Personal history of nicotine dependence; Z91.11 Patient's noncompliance with dietary regimen

== ENCOUNTER 2018-04-05 22:46 | Inpatient (IN) | payer MEDICARE, OTHER ==
[~2018-04-05] VITALS: Ht 157.5 cm; Wt 49.2 kg
--- NOTE | ~2018-04-05 | CN ---
PATIENT NAME:NEY BAINS MEDICAL RECORD: [id number] : 45 LOCATION:D.M2 D.2109 ADMIT DATE: 04/06/18 ACCOUNT: [id number] CONSULTING PHYSICIAN: ZEKE RAMÍREZ MD REFERRING PHYSICIAN: JESSE DEL RIO MD DATE OF CONSULTATION: 04/06/2018 CONSULT REQUESTING PHYSICIAN: Dr. Jesse Del Rio. REASON FOR CONSULTATION: Bilateral pleural effusion, pulmonary edema, hpsyp-se-tcbqabi hypoxic hypercapnic respiratory failure. HISTORY OF PRESENT ILLNESS: Ms. Bains is a 72-year-old female, very well known to me. The patient came into the ER with worsening shortness of breath, orthopnea, PND. She was also coughing without much sputum production. Denies any fever, chill. No night sweats. REVIEW OF SYSTEMS: As in history of present illness. PAST MEDICAL HISTORY: 1. COPD. 2. Congestive heart failure. 3. Severe pulmonary hypertension. 4. Hyperlipidemia. 5. Coronary artery disease. 6. Chronic dependent edema. 7. Hyperlipidemia. 8. Hypertension. PAST SURGICAL HISTORY: 1. She has a cardiac catheterization, status post stent placement. 2. Tubal ligation. 3. History of carotid endarterectomy. ALLERGIES: She is allergic to possible PREDNISONE. MEDICATIONS: List on the [employer] was reviewed. PERSONAL SOCIAL HISTORY: The patient is an ex-smoker. She is a nondrinker. FAMILY HISTORY: Noncontributory. PHYSICAL EXAMINATION: GENERAL: Now, the patient is lying comfortably in bed. She is not in acute distress. VITAL SIGNS: The blood pressure is 158/74, pulse is 107, respirations 15, temperature is 97.7, and SpO2 is 95% on 2.5 liter nasal cannula. HEENT: Conjunctivae are pink. Sclerae not icteric. NECK: Neck is supple. No JVD. CHEST: The chest excursion is minimal on both sides. There are bilateral crackles. Wheeze on forceful expiration. HEART: Rhythm regular. Normal sound. No murmur. ABDOMEN: Abdomen is soft. Bowel sounds present. No hepatosplenomegaly. RECTAL: Deferred. EXTREMITIES: No cyanosis, no clubbing. There are 2+ pedal edema. CONSULT REPORT [id number] NEY BAINS CENTRAL NERVOUS SYSTEM: The patient is awake and alert. There is no obvious cranial nerve abnormality. The gait was not tested. DIAGNOSTIC DATA: Chest radiograph, there is increased interstitial marking, bilateral pleural effusions, right more than the left. OTHER LABORATORY DATA: CBC: WBC 9.8, hemoglobin 11.4, hematocrit is 36.9, the platelet count 189. The neutrophils are 84.6%. Chemistry; sodium 139, potassium 3.5, BUN is 36, creatinine 1.6. AST is 59, ALT is 114. The proBNP is 86,539. The troponin is 0.41. ABG: The pH is 7.31, pCO2 is 69.3, the pO2 is 324, and bicarbonate is 35.3. IMPRESSION: 1. Vldaz-dk-lknukhn hypoxic hypercapnic respiratory failure. 2. Respiratory acidosis. 3. Acute exacerbation of chronic obstructive pulmonary disease. 4. Bilateral pleural effusion, right more than the left. 5. Congestive heart failure with chronic systolic dysfunction. 6. Elevated cardiac enzymes. 7. Pulmonary hypertension of severe degree secondary to congestive heart failure. RECOMMENDATION: 1. Continue supplemental oxygen and BiPAP as required and started on Bumex. 2. Discontinue the IV fluid. 3. Decrease the methylprednisolone dosage, albuterol and ipratropium nebulizer, Brovana and budesonide nebulizer. Start empiric Rocephin for possible underlying pneumonia, though the patient ahs compressive atelectasis because of the pleural effusion. 4. I will recommend cardiology consult. 5. Followup labs and chest radiograph, decubitus chest radiograph in the morning, Bumex [address] Del Rio thank you for involving me in the care of Ms. Bains. TRANSINT:[id number] Voice Confirmation ID: [id number] DOCUMENT ID: [id number] ZEKE RAMÍREZ MD CC: JESSE DEL RIO [id number] DICTATION DATE: 04/06/18 1447 TOOL LAPPER HAND: 04/06/[address] [facility] [address] [place] [address]
--- NOTE | ~2018-04-05 | EC ---
PATIENT:NEY CORRAL DATE OF SERVICE: 04/06/18 SEX: F MEDICAL RECORD: [id number] DATE OF : 45 LOCATION:D.M2 D.210 AGE OF PATIENT: 72 ADMISSION DATE: 04/06/18 REFERRING PHYSICIAN: INTERPRETING PHYSICIAN: SONA KIDD MD ECHOCARDIOGRAM REPORT ECHO CHARGES 5 ECHO LIMITED Date: 04/07 1 DOPPLER ECHO COLOR FLOW 2 DOPPLER ECHO PULSE CLINICAL DIAGNOSIS: CHF ECHOCARDIOGRAPHIC MEASUREMENTS (adult normal given) AC root (d.<3.7cm) 0 cm LV Septum d (<1.2 cm> 0 cm Valve Excursion 0 cm LV Septum (systole) 0 cm Left Atria (s.<4.0cm> 0 cm LVPW d(<1.2cm) 0 cm RV (d.<2.3cm) 0 cm LVPW (sytole) 0 cm LV diastole(<5.6CM) 0 cm MV E-F(>70mm/sec) 0 cm LV systole 0 cm LVOT Diameter 0 cm MV exc.(>10mm) 0 cm Est.ejection fraction (50-75%) 0 % DOPPLER: LVIT 0 cm/sec A 0 cm/sec E 0 cm/sec LA 0 cm/sec RVSP 78.0 mmHg LVOT 0 cm/sec AOP1/2T 0 m/s Asc. Ao 0 cm/sec RVOT 0 cm/sec RA 0 cm/sec PA 0 cm/sec AV Gradient Peak 0 mmHg AV Mean 0 mmHg AV Area 0 cm MV Gradient Peak 0 mmHg MV Mean 0 mmHg MV Area 0 cm COMMENTS: LIMITED STUDY (2-D,COLOR,DOPPLER) COMPLETE ECHO DONE ON 02/18/18 Room Service Runner: 1 JENSEN ACEVESOE Health Occupations Teacher: 3 Dr. Lechuga TAPE# PACS Pericardial Effusion N DATE OF SERVICE: Gross LVH appears present. LV internal dimensions are grossly normal. LV appears to be hypokinetic with reduced EF, estimated EF 20% to 25%. Aortic valve is sclerotic without evidence of stenosis. Left atrium grossly appears upper limits of normal to mildly dilated with moderate MR. Right-sided chambers appear to be upper limits of normal to dilated. Severe TR. TRANSINT:[id number] Voice Confirmation ID: [id number] DOCUMENT ID: [id number] ECHOCARDIOGRAM REPORT [id number] NEY CORRAL,SONA Hitchcock MD at 1359 CC: [id number] DICTATION DATE: 04/07/18 1141 ZIGZAG TOPSTITCHER: 04/07/18 1213 ADM IN [place] [id number] [place] [id number]
--- NOTE | ~2018-04-05 | HEMODYNAMI ---
PATIENT:NEY CORRAL MEDICAL RECORD: [id number] : 45 LOCATION:[facility] D.2109 ADMISSION DATE: 04/06/18 Generatedon:04/09/20188:47 Patient name: NEY CORRAL Patient #: [id number] SSN: : 1945 Date of study: 04/09/2018 Page: Of Hemodynamic Procedure Report Patient Data Patient Demographics Procedure consent was obtained First Name: NEY Gender: Female Last Name: ELLIS : 1945 [facility] Initial: K Age: 72 year(s) Patient #: [id number] Race: Unknown Additional ID: [id number] Contact details [address]: [address] [place] [address] rd State: [place] City: [place] Zip code: [address] Past Medical History Allergies: No known allergies Admission Admission Data Admission Date: 04/06/2018 Admission Time: 1:13 Room #: 2109 Procedure Procedure Types Cath Procedure Peripheral Cath Diagnostic Procedure Miscellaneous Thoracentesis Procedure Description Procedure Date Procedure Date: 04/09/2018 Procedure Start Time: 8:31 Procedure Staff Name Function Venu Todd MD Performing Physician Yara Levine RN Nurse Dodie Hilton RT Monitor Rob Levine RT Scrub Procedure Medications Medication Administration Route Dosage Lidocaine 1% added to field 20 Oxygen etCO2 Nasal cannula 5 l/min Hemodynamics Rest Heart Rate: 112 (bpm) Snapshots Pre Cath Intra NCS Post Cath Vital Signs Time Heart Resp SPO2 etCO2 NIBP (mmHg) Rhythm Pain Sedation Rate (ipm) (%) (mmHg) Status Level (bpm) 8:17:13 112 10 73 21 183/90(153) NSR 0 (11) 9(A) , No pain 8:21:33 112 26 95 33.8 181/108(139) NSR 0 (11) 9(A) , No pain 8:26:20 119 26 83 0 177/113(152) NSR 0 (11) 9(A) , No pain 8:30:40 115 18 93 9.7 189/109(147) NSR 0 (11) 9(A) , No pain 8:35:02 114 19 95 3 181/97(144) NSR 0 (11) 9(A) , No pain 8:39:18 111 20 96 4.5 181/103(144) NSR 0 (11) 9(A) , No pain 8:43:37 110 20 97 1.5 183/106(156) NSR 0 (11) 9(A) , No pain Medications Time Medication Route Dose Verified Delivered Reason Notes Effectivene ss by by 8:34:06 Lidocaine added 20ml Venu Lea Per 1% to vial Peyton Todd protocol field MD TANG 8:34:23 Oxygen etCO2 5 Venu [place] for low Nasal l/min Peyton Levine RN 02 sats cannula Procedure Log Time Note 7:58:24 Rob Levine RT (R) (CV) sent for patient. Start room use. 7:58:33 Time tracking: Regular hours (M-F 7:00 - 5:00) 7:58:40 Plan of Care:Hemodynamics will remain stable., Cardiac rhythm will remain stable., Comfort level will be maintained., Respiratory function will remain adequate., Patient/ family verbilizes understanding of procedure., Procedure tolerated without complication., Recovers from procedure without complications.. 7:59:01 Patient arrived from [facility] to IR. Patient remains on bed/stretcher for procedure. 7:59:05 Correct patient and procedure confirmed by team. 7:59:10 Signed procedure consent form obtained from patient. 7:59:11 ECG and BP/O2 sat monitors applied to patient. 7:59:12 Full Disclosure recording started 7:59:13 7:59:18 H&P Date Dictated: 04/09/2018 Within 30 days and on chart.. 7:59:18 Pre-procedure instructions explained to patient. 7:59:19 Pre-op teaching completed and patient verbalized understanding. 7:59:20 Family in waiting room. 7:59:23 Patient NPO since Midnight. 7:59:30 Is the patient allergic to Iodine/contrast media? No. 7:59:40 Is patient on blood thinner?Yes 7:59:43 ACC The patient was administered the following blood thiners within the last 24 hours: ACCPlavix 8:04:09 Patient diabetic? No. 8:04:23 8:04:24 ----Pre-sedation anethsthesia assessment.---- 8:04:31 Previous problem with sedation/anesthesia? No ? 8:04:42 Snore? Yes 8:04:45 Sleep apnea? No 8:04:49 Deviated septum? No 8:04:53 Opens mouth fully? Yes 8:04:54 Sticks out tongue? Yes 8:04:57 Airway obstruction? Yes copd 8:05:03 Dentures? Yes in tight 8:05:09 Patient pain scale 0/10 no pain. 8:05:17 IV patent on arrival in left forearm with 0.9% NaCl at O. 8:16:00 8:16:07 Vital chart was started 8:17:11 Baseline sample Acquired. 8:20:40 Left chest area was prepped with chlora-prep and draped in sterile fashion 8:30:33 Physician arrived 8:30:34 --------ALL STOP TIME OUT------ 8:30:36 Final Timeout: patient, procedure, and site verified with staff and physician. All members of the team are in agreement. 8:30:38 Left chest site verified by team. 8:30:43 Sedation plan: IV Moderate Sedation Medication:Versed, Fentanyl 8:31:03 Procedure started. 8:31:08 Local anesthetic to Chest area with Lidocaine 1% by Venu Todd MD.INITIAL ACCESS ONLY 8:31:21 [id number] 8FR CATH DRAIN TRAY opened to sterile field. 8:34:06 Lidocaine 1% 20ml vial added to field was administered by Venu Todd MD; Per protocol; 8:34:23 Oxygen 5 l/min etCO2 Nasal cannula was administered by Yara Levine RN; for low 02 sats; 8:41:03 1liter of fluid drained from lung 8:43:50 Procedure ended.(Physican Out) 8:46:15 Procedure and supply charges have been captured, reviewed, submitted and are correct. 8:47:01 Vital chart was stopped Device Usage Item Name Manufacture Quantity Catalog Hospital Part Current Minimal Lot# / Number Charge Number Stock Stock Serial# Code [id number] CareFusion 1 [id number] [id number] CATH DRAIN TRAY Signature Audit Colver Stage Time Signature Unsigned Intra-Procedure 04/09/2018 Dodie Hilton 8:46:58 AM RT(R) Signatures Monitor : Dodie Hilton RT Signature : Date : Time : [address] [address]
[~2018-04-05 22:46] MED LIST changes: +HYDRALAZINE HCL10 MG PO; +LASIX40 MG PO
[2018-04-05 23:28] LABS: BASOPHILS 0.2 % (0-2); EOSINOPHILS 1.2 % (0-7); HEMATOCRIT 36.9 % (36.0-48.0); HEMOGLOBIN 11.4 g/dL (12-16); IMMATURE GRANULOCYTES 0.2 % (0-5); LYMPHOCYTES 5.3 % (15-50); MCH 26.9 pg (26.0-34.0); MCHC 30.9 g/dL (31.0-37.0); MEAN PLATELET VOLUME 9.5 fL (7.4-10.4); MONOCYTES 8.5 % (2-11); NEUTROPHILS 84.6 % (40-80); PLATELET COUNT 189 10x3/uL (130-400); RBC 4.24 10x6/uL (4.00-5.40); RDW 18.6 % (11.5-14.5); WBC 9.8 10x3/uL (4.8-10.8)
[2018-04-05 23:43] LABS: ALBUMIN 3.5 g/dL (3.4-5.0); ANION GAP 13.1 mmol/L (8-16); BILIRUBIN - TOTAL 1.03 mg/dL (0.2-1.3); CALCIUM 9.9 mg/dL (8.5-10.1); CARBON DIOXIDE 32.4 mmol/L (21.0-32.0); CREATININE - SERUM 1.6 mg/dL (0.6-1.3); POTASSIUM - SERUM 3.5 mmol/L (3.5-5.1); PROTEIN - SERUM 6.8 g/dL (6.4-8.2)
[2018-04-06 00:14] LABS: TROPONIN-I 0.411 ng/mL (0.000-0.060)
[2018-04-06 02:13] VITALS: BP 197/98; Ht 157.5 cm; Wt 49.2 kg
[2018-04-06] MEDS ORDERED: K-TAB10 MEQ PO (02:32)
[2018-04-06 04:54] VITALS: BP 197/98
[2018-04-06 08:03] VITALS: BP 162/78
[2018-04-06 12:13] VITALS: BP 158/74
[2018-04-06] MEDS ORDERED: LOPRESSOR25 MG PO (13:47)
[2018-04-06] MEDS ORDERED: ADVAIR 250/501 DISK INH (13:48)
[2018-04-06 14:26] LABS: CKMB 4.5 U/L (0.0-3.6); CREATINE KINASE 53 UL (21-215)
[2018-04-06 14:27] LABS: TROPONIN-I 0.212 ng/mL (0.000-0.060)
[2018-04-06 16:32] VITALS: BP 162/82
[2018-04-06 19:50] LABS: CKMB 3.4 U/L (0.0-3.6); CREATINE KINASE 48 UL (21-215)
[2018-04-06 19:51] LABS: TROPONIN-I 0.222 ng/mL (0.000-0.060)
[2018-04-06 21:34] VITALS: BP 175/93
[2018-04-07 01:32] VITALS: BP 161/81
[2018-04-07 01:44] LABS: CKMB 3.3 U/L (0.0-3.6); CREATINE KINASE 38 UL (21-215)
[2018-04-07 01:45] LABS: TROPONIN-I 0.211 ng/mL (0.000-0.060)
[2018-04-07 04:55] LABS: BASOPHILS 0 % (0-2); EOSINOPHILS 0 % (0-7); HEMATOCRIT 33.5 % (36.0-48.0); HEMOGLOBIN 10.3 g/dL (12-16); IMMATURE GRANULOCYTES 0.1 % (0-5); MCH 26.3 pg (26.0-34.0); MCHC 30.7 g/dL (31.0-37.0); MCV 85.7 fL (80.0-100.0); MEAN PLATELET VOLUME 9.9 fL (7.4-10.4); MONOCYTES 2.5 % (2-11); NEUTROPHILS 94.4 % (40-80); PLATELET COUNT 173 10x3/uL (130-400); RBC 3.91 10x6/uL (4.00-5.40); RDW 18.8 % (11.5-14.5)
[2018-04-07 05:10] LABS: WBC 7.3 10x3/uL (4.8-10.8)
[2018-04-07 05:14] LABS: ALBUMIN 3.3 g/dL (3.4-5.0); BILIRUBIN - TOTAL 0.68 mg/dL (0.2-1.3); CALCIUM 10.1 mg/dL (8.5-10.1); CARBON DIOXIDE 32.2 mmol/L (21.0-32.0); CREATININE - SERUM 1.6 mg/dL (0.6-1.3); MAGNESIUM - SERUM 2.2 mg/dL (1.8-2.4); PROTEIN - SERUM 6.5 g/dL (6.4-8.2)
[2018-04-07 05:19] LABS: POTASSIUM - SERUM 4.2 mmol/L (3.5-5.1)
[2018-04-07 07:09] VITALS: BP 170/75
[2018-04-07 08:26] VITALS: BP 102/61
[2018-04-07 12:34] VITALS: BP 108/64
[2018-04-07 15:45] VITALS: BP 157/75
[2018-04-07 21:09] VITALS: BP 175/96
[2018-04-08 00:49] VITALS: BP 161/79
[2018-04-08 05:12] VITALS: BP 168/91
[2018-04-08 06:36] LABS: BASOPHILS 0 % (0-2); EOSINOPHILS 0 % (0-7); HEMATOCRIT 34.5 % (36.0-48.0); HEMOGLOBIN 10.8 g/dL (12-16); IMMATURE GRANULOCYTES 0.2 % (0-5); LYMPHOCYTES 2.2 % (15-50); MCH 26.8 pg (26.0-34.0); MCHC 31.3 g/dL (31.0-37.0); MCV 85.6 fL (80.0-100.0); MEAN PLATELET VOLUME 10.4 fL (7.4-10.4); MONOCYTES 2.2 % (2-11); NEUTROPHILS 95.4 % (40-80); PLATELET COUNT 174 10x3/uL (130-400); RBC 4.03 10x6/uL (4.00-5.40); RDW 18.5 % (11.5-14.5)
[2018-04-08 06:44] LABS: WBC 9.3 10x3/uL (4.8-10.8)
[2018-04-08 06:59] LABS: ALBUMIN 3.5 g/dL (3.4-5.0); ANION GAP 11.1 mmol/L (8-16); BILIRUBIN - TOTAL 0.5 mg/dL (0.2-1.3); CALCIUM 9.8 mg/dL (8.5-10.1); CARBON DIOXIDE 32.6 mmol/L (21.0-32.0); CREATININE - SERUM 1.9 mg/dL (0.6-1.3); MAGNESIUM - SERUM 2.4 mg/dL (1.8-2.4); POTASSIUM - SERUM 4.7 mmol/L (3.5-5.1); PROTEIN - SERUM 6.7 g/dL (6.4-8.2)
[2018-04-08 08:14] VITALS: BP 103/65
[2018-04-08 11:53] VITALS: BP 120/82
[2018-04-08 14:56] LABS: APPEARANCE CLEAR (CLEAR); BILIRUBIN NEGATIVE (NEGATIVE); COLOR YELLOW (YELLOW); GLUCOSE NEGATIVE (NEGATIVE); KETONE NEGATIVE (NEGATIVE); NITRITE NEGATIVE (NEGATIVE); PROTEIN NEGATIVE (NEGATIVE); SPECIFIC GRAVITY 1.015 (1.005-1.020); UROBILINOGEN NORMAL (NORMAL)
[2018-04-08 14:57] LABS: BACTERIA FEW /hpf (NONE SEEN); EPITHELIAL CELLS 0-5 /hpf (0-5); RED CELLS - URINE OCC /hpf (0-5)
[2018-04-08 17:06] VITALS: BP 107/65
[2018-04-08 21:09] VITALS: BP 178/93
[2018-04-09 05:54] VITALS: BP 180/107
[2018-04-09 06:48] LABS: BASOPHILS 0.1 % (0-2); EOSINOPHILS 0 % (0-7); HEMATOCRIT 35.4 % (36.0-48.0); HEMOGLOBIN 11.1 g/dL (12-16); IMMATURE GRANULOCYTES 0.1 % (0-5); LYMPHOCYTES 2.8 % (15-50); MCHC 31.4 g/dL (31.0-37.0); MCV 86.1 fL (80.0-100.0); MEAN PLATELET VOLUME 10.3 fL (7.4-10.4); PLATELET COUNT 168 10x3/uL (130-400); RBC 4.11 10x6/uL (4.00-5.40); RDW 18.6 % (11.5-14.5); WBC 8.8 10x3/uL (4.8-10.8)
[2018-04-09 07:07] LABS: ALBUMIN 3.6 g/dL (3.4-5.0); ANION GAP 11.9 mmol/L (8-16); BILIRUBIN - TOTAL 0.49 mg/dL (0.2-1.3); CALCIUM 9.9 mg/dL (8.5-10.1); CREATININE - SERUM 1.8 mg/dL (0.6-1.3); MAGNESIUM - SERUM 2.5 mg/dL (1.8-2.4); POTASSIUM - SERUM 4.9 mmol/L (3.5-5.1); PROTEIN - SERUM 6.5 g/dL (6.4-8.2)
[2018-04-09 08:07] LABS: APTT 28.6 SECONDS (22.8-39.4); INR 1.09 (0.85-1.17); PROTIME 13.7 SECONDS (11.6-15.0)
[2018-04-09 11:11] LABS: PROTEIN - BODY FLUID 2.5 G/DL
[2018-04-09 12:31] VITALS: BP 157/87
[2018-04-09 12:47] VITALS: BP 157/87
[2018-04-09 13:54] LABS: MACROPHAGES BF 31 %; MESOTHELIALS BF 11 %; NEUT - BF 12 %
[2018-04-09 20:00] VITALS: BP 185/99
[2018-04-10] VITALS (12 sets, daily range): BP systolic 130–190; BP diastolic 68–102
[2018-04-10 04:31] LABS: BASOPHILS 0 % (0-2); EOSINOPHILS 0 % (0-7); HEMATOCRIT 37.4 % (36.0-48.0); HEMOGLOBIN 11.7 g/dL (12-16); IMMATURE GRANULOCYTES 0.1 % (0-5); LYMPHOCYTES 1.6 % (15-50); MCH 26.8 pg (26.0-34.0); MCHC 31.3 g/dL (31.0-37.0); MCV 85.8 fL (80.0-100.0); MEAN PLATELET VOLUME 9.8 fL (7.4-10.4); MONOCYTES 2.5 % (2-11); NEUTROPHILS 95.8 % (40-80); PLATELET COUNT 158 10x3/uL (130-400); RBC 4.36 10x6/uL (4.00-5.40); RDW 18.4 % (11.5-14.5); WBC 7.6 10x3/uL (4.8-10.8)
[2018-04-10 04:53] LABS: ALBUMIN 3.3 g/dL (3.4-5.0); ANION GAP 11.4 mmol/L (8-16); BILIRUBIN - TOTAL 0.57 mg/dL (0.2-1.3); CALCIUM 9.4 mg/dL (8.5-10.1); CARBON DIOXIDE 34.4 mmol/L (21.0-32.0); CREATININE - SERUM 1.9 mg/dL (0.6-1.3); MAGNESIUM - SERUM 2.3 mg/dL (1.8-2.4); POTASSIUM - SERUM 4.8 mmol/L (3.5-5.1); PROTEIN - SERUM 6.6 g/dL (6.4-8.2)
[2018-04-10 10:35] LABS: APTT 28.4 SECONDS (22.8-39.4); INR 1.12 (0.85-1.17)
[2018-04-10 15:24] LABS: ACID FAST SMEAR Negative (()); AFB SPECIMEN PROCESSING Concentration (())
[2018-04-10 16:23] LABS: PROTEIN - BODY FLUID 2.2 G/DL
[2018-04-10 17:20] LABS: MESOTHELIALS BF 5 %; NEUT - BF 21 %
[2018-04-11] VITALS: BP 157/71
[2018-04-11 04:00] VITALS: BP 142/80
[2018-04-11 05:37] LABS: BASOPHILS 0.1 % (0-2); EOSINOPHILS 0 % (0-7); HEMATOCRIT 35.7 % (36.0-48.0); HEMOGLOBIN 11.2 g/dL (12-16); IMMATURE GRANULOCYTES 0.2 % (0-5); LYMPHOCYTES 5.1 % (15-50); MCH 26.6 pg (26.0-34.0); MCHC 31.4 g/dL (31.0-37.0); MCV 84.8 fL (80.0-100.0); MONOCYTES 1.9 % (2-11); NEUTROPHILS 92.7 % (40-80); PLATELET COUNT 159 10x3/uL (130-400); RBC 4.21 10x6/uL (4.00-5.40); RDW 18.2 % (11.5-14.5); WBC 8.4 10x3/uL (4.8-10.8)
[2018-04-11 05:59] LABS: ALBUMIN 3.2 g/dL (3.4-5.0); ANION GAP 9.9 mmol/L (8-16); BILIRUBIN - TOTAL 0.54 mg/dL (0.2-1.3); CALCIUM 9.5 mg/dL (8.5-10.1); CARBON DIOXIDE 35.4 mmol/L (21.0-32.0); CREATININE - SERUM 1.8 mg/dL (0.6-1.3); MAGNESIUM - SERUM 2.4 mg/dL (1.8-2.4); POTASSIUM - SERUM 4.3 mmol/L (3.5-5.1)
[2018-04-11 08:16] VITALS: BP 169/82
[2018-04-11] MEDS ORDERED: BUMEX2 MG PO (10:36)
[2018-04-11] MEDS ORDERED: K-TAB10 MEQ PO (10:37)
[2018-04-11] MEDS ORDERED: STERAPRED 5MG 65 M1 PO (10:38)
[2018-04-11 11:59] VITALS: BP 191/96
[2018-04-11 13:19] LABS: FUNGUS STAIN Final report (())
[2018-04-12 20:07] LABS: ACID FAST SMEAR Negative (()); AFB SPECIMEN PROCESSING Not Indicated (())
[2018-04-14 13:08] LABS: FUNGUS STAIN Final report (())
[2018-04-16 13:15] LABS: FUNGUS MYCOLOGY CULTURE Preliminary report (())
[2018-04-18 11:21] LABS: FUNGUS MYCOLOGY CULTURE Preliminary report (())
== END 2018-04-11 15:27 | disposition home health service (06) | DRG 291 ==
LOC: D.ER 22:46 → D.EDHOLD 04-06 01:13 → D.M2 04-06 01:13
PROVIDERS: Emergency Medicine; Family Medicine; Internal Medicine Nephrology; Internal Medicine Pulmonary Disease; Radiology Diagnostic Radiology; Specialist
PROC: 5A09357 Assistance with Respiratory Ventilation, Less than 24 Consecutive Hours, Continuous Positive Airway Pressure (ICD-10-PCS; principal; 2018-04-06)
PROC: 0W9B3ZZ Drainage of Left Pleural Cavity, Percutaneous Approach (ICD-10-PCS; 2018-04-09)
PROC: 0W993ZZ Drainage of Right Pleural Cavity, Percutaneous Approach (ICD-10-PCS; 2018-04-10)
DX: I13.0 Hypertensive heart and chronic kidney disease with heart failure and stage 1 through stage 4 chronic kidney disease, or unspecified chronic kidney disease (principal); J96.22 Acute and chronic respiratory failure with hypercapnia; I50.33 Acute on chronic diastolic (congestive) heart failure; J96.21 Acute and chronic respiratory failure with hypoxia; N17.9 Acute kidney failure, unspecified; I42.9 Cardiomyopathy, unspecified; N18.9 Chronic kidney disease, unspecified; Z87.891 Personal history of nicotine dependence; I08.1 Rheumatic disorders of both mitral and tricuspid valves; D64.9 Anemia, unspecified; I27.20 Pulmonary hypertension, unspecified; R63.4 Abnormal weight loss; Z68.20 Body mass index [BMI] 20.0-20.9, adult; I50.814 Right heart failure due to left heart failure

== ENCOUNTER → 2018-04-18 14:37 | Outpatient (CLI) | payer MEDICARE, OTHER ==
[2018-04-06 02:13] VITALS: BMI 20.5
[~2018-04-18 14:37] MED LIST changes: +ADVAIR 250/501 DISK INH; +BUMEX2 MG PO; +K-TAB10 MEQ PO; +LEXAPRO10 MG PO; +LOPRESSOR25 MG PO; +STERAPRED 5MG 65 M1 PO
[2018-04-18 16:01] LABS: ANION GAP 10.3 mmol/L (8-16); CALCIUM 9.3 mg/dL (8.5-10.1); CARBON DIOXIDE 34.9 mmol/L (21.0-32.0); CREATININE - SERUM 1.2 mg/dL (0.6-1.3); POTASSIUM - SERUM 4.2 mmol/L (3.5-5.1)
== END | disposition home or self-care (01) ==
LOC: D.LABREF 14:37
PROVIDERS: Family Medicine
DX: I50.9 Heart failure, unspecified (principal)

== ENCOUNTER 2018-05-09 17:04 | Inpatient (IN) | payer MEDICARE, OTHER ==
[~2018-05-09] VITALS: Ht 157.5 cm; Wt 61.5 kg
[2018-05-09] VITALS (12 sets, daily range): BP systolic 161–216; BP diastolic 79–126
--- NOTE | ~2018-05-09 | EC ---
PATIENT:NEY CORRAL DATE OF SERVICE: 05/10/18 SEX: F MEDICAL RECORD: [id number] DATE OF : 45 LOCATION:[facility] D230 AGE OF PATIENT: 72 ADMISSION DATE: 05/10/18 REFERRING PHYSICIAN: INTERPRETING PHYSICIAN: VERITO ROBLERO MD ECHOCARDIOGRAM REPORT ECHO CHARGES 4 ECHO COMPLETE Date: 05/11 CLINICAL DIAGNOSIS: CHF ECHOCARDIOGRAPHIC MEASUREMENTS (adult normal given) AC root (d.<3.7cm) 2.7 cm LV Septum d (<1.2 cm> 1.1 cm Valve Excursion 1.1 cm LV Septum (systole) 1.2 cm Left Atria (s.<4.0cm> 4.0 cm LVPW d(<1.2cm) 1.3 cm RV (d.<2.3cm) 3.6 cm LVPW (sytole) 1.5 cm LV diastole(<5.6CM) 4.1 cm MV E-F(>70mm/sec) cm LV systole 3.4 cm LVOT Diameter 1.5 cm MV exc.(>10mm) 1.2 cm Est.ejection fraction (50-75%) % DOPPLER: LVIT cm/sec A 155 cm/sec E 149 cm/sec LA cm/sec RVSP 64 mmHg LVOT 104 cm/sec AOP1/2T m/s Asc. Ao 175 cm/sec RVOT 98 cm/sec RA cm/sec PA 128 cm/sec AV Gradient Peak 12.25mmHg AV Mean 6.93 mmHg AV Area 1.1 cm MV Gradient Peak 15.22mmHg MV Mean 5.30 mmHg MV Area cm COMMENTS: Attractions Associate: 2 GINGER CASTRO Door Captain: 4 Dr. Roblero TAPE# PACS Pericardial Effusion Y DATE OF SERVICE: PROCEDURE: Transthoracic echocardiogram. FINDINGS: 1. The left ventricle shows severe concentric left ventricular hypertrophy. There is a pleural effusion noted on the left side. The overall ejection fraction is 40% to 45%. There is anterior hypokinesis. 2. The left atrium is moderately dilated. 3. The aortic valve is sclerotic without stenosis. ECHOCARDIOGRAM REPORT [id number] NEY CORRAL 4. The mitral valve has moderate mitral regurgitation. 5. Tricuspid valve has moderate tricuspid regurgitation, RVSP is 64 mmHg. 6. The right ventricle was dilated as well as the right atrium. 7. The pulmonic valve is not well visualized. CONCLUSIONS: The patient has evidence of hypertensive heart disease with diastolic dysfunction, pulmonary hypertension, moderate mitral regurgitation. Also of note is the concentric hypertrophy and restrictive inflow characteristics much could be consistent with infiltrative diseases such as amyloidosis. TRANSINT:[id number] Voice Confirmation ID: [id number] DOCUMENT ID: [id number] VERITO ROBLERO MD at 0927 CC: [id number] DICTATION DATE: 05/12/18817 RN CASE MANAGER HOSPICE: 05/12/18 0857 ADM IN [facility] [address] [place] [id number]
[~2018-05-09 17:04] MED LIST changes: -LEXAPRO10 MG PO
[2018-05-09] MEDS ORDERED: LEXAPRO10 MG PO (17:21)
[2018-05-09 17:59] LABS: BASOPHILS 0.1 % (0-2); EOSINOPHILS 1.4 % (0-7); HEMATOCRIT 32.9 % (36.0-48.0); HEMOGLOBIN 10.4 g/dL (12-16); IMMATURE GRANULOCYTES 0.1 % (0-5); LYMPHOCYTES 6.3 % (15-50); MCH 28.3 pg (26.0-34.0); MCHC 31.6 g/dL (31.0-37.0); MCV 89.6 fL (80.0-100.0); MEAN PLATELET VOLUME 9.2 fL (7.4-10.4); MONOCYTES 7.1 % (2-11); RBC 3.67 10x6/uL (4.00-5.40); RDW 16.5 % (11.5-14.5); WBC 7.3 10x3/uL (4.8-10.8)
[2018-05-09 18:04] LABS: PLATELET COUNT 196 10x3/uL (130-400)
[2018-05-09 18:24] LABS: ALBUMIN 3.2 g/dL (3.4-5.0); BILIRUBIN - TOTAL 0.62 mg/dL (0.2-1.3); CARBON DIOXIDE 33.9 mmol/L (21.0-32.0); CREATININE - SERUM 1.3 mg/dL (0.6-1.3); POTASSIUM - SERUM 3.9 mmol/L (3.5-5.1); PROTEIN - SERUM 6.2 g/dL (6.4-8.2)
[2018-05-10] VITALS (8 sets, daily range): BP systolic 130–194; BP diastolic 60–98; Ht 157.5 cm; Wt 61.5 kg
[2018-05-10 10:23] LABS: BASOPHILS 0.1 % (0-2); EOSINOPHILS 0 % (0-7); HEMATOCRIT 34.7 % (36.0-48.0); HEMOGLOBIN 11.2 g/dL (12-16); IMMATURE GRANULOCYTES 0.6 % (0-5); LYMPHOCYTES 2.9 % (15-50); MCH 28.5 pg (26.0-34.0); MCHC 32.3 g/dL (31.0-37.0); MCV 88.3 fL (80.0-100.0); MEAN PLATELET VOLUME 9.8 fL (7.4-10.4); MONOCYTES 2.5 % (2-11); NEUTROPHILS 93.9 % (40-80); PLATELET COUNT 195 10x3/uL (130-400); RBC 3.93 10x6/uL (4.00-5.40); RDW 16.1 % (11.5-14.5)
[2018-05-10 10:24] LABS: WBC 9.9 10x3/uL (4.8-10.8)
[2018-05-10 10:36] LABS: % SATURATION 38 % (15-55); IRON 100 ug/dl (35-150); TOTAL IRON BIND CAPACITY 263 ug/dl (260-445); UNSAT IRON BIND CAPACITY 163 ug/dl (150-375)
[2018-05-10 11:06] LABS: ALBUMIN 3.2 g/dL (3.4-5.0); BILIRUBIN - TOTAL 0.72 mg/dL (0.2-1.3); CALCIUM 9.8 mg/dL (8.5-10.1); CARBON DIOXIDE 26.5 mmol/L (21.0-32.0); CREATININE - SERUM 1.4 mg/dL (0.6-1.3); POTASSIUM - SERUM 4.5 mmol/L (3.5-5.1); PROTEIN - SERUM 6.3 g/dL (6.4-8.2)
[2018-05-10 11:07] LABS: CKMB 8.8 U/L (0.0-3.6); CREATINE KINASE 108 UL (21-215)
[2018-05-10 11:10] LABS: TROPONIN-I 0.254 ng/mL (0.000-0.060)
[2018-05-10 16:28] LABS: CKMB 9.6 U/L (0.0-3.6); CREATINE KINASE 98 UL (21-215)
[2018-05-10 16:31] LABS: TROPONIN-I 0.299 ng/mL (0.000-0.060)
[2018-05-10 21:59] LABS: CKMB 7.9 U/L (0.0-3.6); CREATINE KINASE 95 UL (21-215)
[2018-05-10 22:02] LABS: TROPONIN-I 0.342 ng/mL (0.000-0.060)
[2018-05-11] VITALS (19 sets, daily range): BP systolic 122–191; BP diastolic 67–98
[2018-05-11 04:59] LABS: BASOPHILS 0.1 % (0-2); EOSINOPHILS 0.1 % (0-7); IMMATURE GRANULOCYTES 0.4 % (0-5); LYMPHOCYTES 5.3 % (15-50); MCH 28.8 pg (26.0-34.0); MCHC 30.8 g/dL (31.0-37.0); MEAN PLATELET VOLUME 10.4 fL (7.4-10.4); MONOCYTES 4.6 % (2-11); NEUTROPHILS 89.5 % (40-80); RDW 16.7 % (11.5-14.5); WBC 10.9 10x3/uL (4.8-10.8)
[2018-05-11 05:00] LABS: HEMATOCRIT 44.2 % (36.0-48.0); HEMOGLOBIN 13.6 g/dL (12-16); MCV 93.6 fL (80.0-100.0); RBC 4.72 10x6/uL (4.00-5.40)
[2018-05-11 05:01] LABS: PLATELET COUNT 387 10x3/uL (130-400)
[2018-05-11 05:28] LABS: ALBUMIN 3.7 g/dL (3.4-5.0); ANION GAP 18.7 mmol/L (8-16); BILIRUBIN - TOTAL 0.6 mg/dL (0.2-1.3); CALCIUM 9.7 mg/dL (8.5-10.1); CARBON DIOXIDE 24.9 mmol/L (21.0-32.0); PROTEIN - SERUM 7.3 g/dL (6.4-8.2)
[2018-05-11 05:32] LABS: POTASSIUM - SERUM 5.6 mmol/L (3.5-5.1)
[2018-05-11 08:55] LABS: APTT 32.1 SECONDS (22.8-39.4); INR 1.13 (0.85-1.17); PROTIME 14.1 SECONDS (11.6-15.0)
[2018-05-12] VITALS (24 sets, daily range): BP systolic 140–176; BP diastolic 75–103
[2018-05-12 03:48] LABS: BASOPHILS 0 % (0-2); EOSINOPHILS 0 % (0-7); IMMATURE GRANULOCYTES 0.2 % (0-5); LYMPHOCYTES 3.8 % (15-50); MCH 28.1 pg (26.0-34.0); MCHC 31.6 g/dL (31.0-37.0); MEAN PLATELET VOLUME 9.8 fL (7.4-10.4); RBC 3.81 10x6/uL (4.00-5.40); RDW 16.7 % (11.5-14.5); WBC 8.4 10x3/uL (4.8-10.8)
[2018-05-12 03:54] LABS: HEMATOCRIT 33.9 % (36.0-48.0); HEMOGLOBIN 10.7 g/dL (12-16); PLATELET COUNT 250 10x3/uL (130-400)
[2018-05-12 04:01] LABS: APTT 34.9 SECONDS (22.8-39.4); INR 1.2 (0.85-1.17); PROTIME 14.8 SECONDS (11.6-15.0)
[2018-05-12 04:23] LABS: CALCIUM 8.9 mg/dL (8.5-10.1); CREATININE - SERUM 2.2 mg/dL (0.6-1.3); MAGNESIUM - SERUM 2.6 mg/dL (1.8-2.4); PHOSPHOROUS 4.8 mg/dL (2.5-4.9)
[2018-05-12 04:25] LABS: ANION GAP 8.3 mmol/L (8-16); CARBON DIOXIDE 33.2 mmol/L (21.0-32.0); POTASSIUM - SERUM 4.5 mmol/L (3.5-5.1)
[2018-05-12 04:26] LABS: TROPONIN-I 0.362 ng/mL (0.000-0.060)
[2018-05-13] VITALS (25 sets, daily range): BP systolic 148–173; BP diastolic 80–104
[2018-05-13 04:32] LABS: BASOPHILS 0 % (0-2); EOSINOPHILS 0 % (0-7); HEMATOCRIT 39.4 % (36.0-48.0); HEMOGLOBIN 12.3 g/dL (12-16); IMMATURE GRANULOCYTES 0.4 % (0-5); LYMPHOCYTES 3.2 % (15-50); MCH 28.2 pg (26.0-34.0); MCHC 31.2 g/dL (31.0-37.0); MCV 90.4 fL (80.0-100.0); MEAN PLATELET VOLUME 10.6 fL (7.4-10.4); MONOCYTES 4.9 % (2-11); NEUTROPHILS 91.5 % (40-80); RBC 4.36 10x6/uL (4.00-5.40); RDW 16.8 % (11.5-14.5)
[2018-05-13 04:34] LABS: PLATELET COUNT 372 10x3/uL (130-400)
[2018-05-13 05:05] LABS: ALBUMIN 3.2 g/dL (3.4-5.0); ANION GAP 16.4 mmol/L (8-16); BILIRUBIN - TOTAL 0.38 mg/dL (0.2-1.3); CALCIUM 8.9 mg/dL (8.5-10.1); CARBON DIOXIDE 26.7 mmol/L (21.0-32.0); CREATININE - SERUM 2.3 mg/dL (0.6-1.3); MAGNESIUM - SERUM 2.8 mg/dL (1.8-2.4); PHOSPHOROUS 4.5 mg/dL (2.5-4.9); POTASSIUM - SERUM 5.1 mmol/L (3.5-5.1); PROTEIN - SERUM 6.3 g/dL (6.4-8.2); THYROID STIMULATING HORMONE 0.52 uIU/mL (0.36-3.74)
[2018-05-13 08:20] LABS: FOLATE (FOLIC ACID) - SERUM 18.3 ng/mL (>3.0)
[2018-05-13 22:40] LABS: APPEARANCE CLEAR (CLEAR); BILIRUBIN NEGATIVE (NEGATIVE); COLOR YELLOW (YELLOW); GLUCOSE NEGATIVE (NEGATIVE); KETONE NEGATIVE (NEGATIVE); NITRITE NEGATIVE (NEGATIVE); PROTEIN NEGATIVE (NEGATIVE); UROBILINOGEN NORMAL (NORMAL)
[2018-05-14] VITALS (26 sets, daily range): BP systolic 141–184; BP diastolic 82–105
[2018-05-14 04:32] LABS: BASOPHILS 0 % (0-2); EOSINOPHILS 0 % (0-7); HEMATOCRIT 33.8 % (36.0-48.0); HEMOGLOBIN 10.6 g/dL (12-16); IMMATURE GRANULOCYTES 0.2 % (0-5); LYMPHOCYTES 2.2 % (15-50); MCH 27.9 pg (26.0-34.0); MCHC 31.4 g/dL (31.0-37.0); MCV 88.9 fL (80.0-100.0); MEAN PLATELET VOLUME 10.8 fL (7.4-10.4); MONOCYTES 3.4 % (2-11); NEUTROPHILS 94.2 % (40-80); RDW 16.4 % (11.5-14.5)
[2018-05-14 04:38] LABS: PLATELET COUNT 169 10x3/uL (130-400); WBC 9.6 10x3/uL (4.8-10.8)
[2018-05-14 04:52] LABS: ALBUMIN 2.8 g/dL (3.4-5.0); BILIRUBIN - TOTAL 0.36 mg/dL (0.2-1.3); CALCIUM 8.7 mg/dL (8.5-10.1); CARBON DIOXIDE 32.1 mmol/L (21.0-32.0); CREATININE - SERUM 2.2 mg/dL (0.6-1.3); PROTEIN - SERUM 5.6 g/dL (6.4-8.2)
[2018-05-14 04:57] LABS: ANION GAP 10.9 mmol/L (8-16)
[2018-05-14 09:17] LABS: SPE - A/G RATIO 1.4 (0.7-1.7); SPE - ALBUMIN 3.3 g/dL (2.9-4.4); SPE - ALPHA-1 GLOBULIN 0.3 g/dL (0.0-0.4); SPE - ALPHA-2 GLOBULIN 0.6 g/dL (0.4-1.0); SPE - BETA GLOBULIN 0.8 g/dL (0.7-1.3); SPE - GAMMA GLOBULIN 0.6 g/dL (0.4-1.8); SPE - M-SPIKE Not Observed g/dL (Not Observed); SPE - TOTAL PROTEIN 5.6 g/dL (6.0-8.5)
[2018-05-14 16:04] LABS: PROTEIN - BODY FLUID 2.1 G/DL
[2018-05-14 17:24] LABS: EOS BF 2 %; MACROPHAGES BF 2 %; MESOTHELIALS BF 1 %; NEUT - BF 28 %
[2018-05-15] VITALS (24 sets, daily range): BP systolic 152–172; BP diastolic 73–98
[2018-05-15 05:12] LABS: BASOPHILS 0 % (0-2); EOSINOPHILS 0 % (0-7); HEMATOCRIT 35.8 % (36.0-48.0); HEMOGLOBIN 11.5 g/dL (12-16); IMMATURE GRANULOCYTES 0.5 % (0-5); LYMPHOCYTES 3.2 % (15-50); MCH 28.3 pg (26.0-34.0); MCHC 32.1 g/dL (31.0-37.0); MCV 88.2 fL (80.0-100.0); MEAN PLATELET VOLUME 10.8 fL (7.4-10.4); MONOCYTES 3.2 % (2-11); NEUTROPHILS 93.1 % (40-80); PLATELET COUNT 179 10x3/uL (130-400); RBC 4.06 10x6/uL (4.00-5.40); WBC 10.5 10x3/uL (4.8-10.8)
[2018-05-15 06:05] LABS: CALCIUM 9.1 mg/dL (8.5-10.1); CARBON DIOXIDE 31.7 mmol/L (21.0-32.0); CREATININE - SERUM 2.2 mg/dL (0.6-1.3); POTASSIUM - SERUM 3.7 mmol/L (3.5-5.1)
[2018-05-15 19:11] LABS: AFB SPECIMEN PROCESSING Not Indicated (())
[2018-05-16] VITALS (24 sets, daily range): BP systolic 135–184; BP diastolic 68–117
[2018-05-16 04:04] LABS: BASOPHILS 0 % (0-2); EOSINOPHILS 0 % (0-7); HEMATOCRIT 36.6 % (36.0-48.0); HEMOGLOBIN 11.7 g/dL (12-16); IMMATURE GRANULOCYTES 0.4 % (0-5); LYMPHOCYTES 3.7 % (15-50); MCH 27.9 pg (26.0-34.0); MCV 87.4 fL (80.0-100.0); MEAN PLATELET VOLUME 10.9 fL (7.4-10.4); MONOCYTES 4.3 % (2-11); NEUTROPHILS 91.6 % (40-80); PLATELET COUNT 168 10x3/uL (130-400); RBC 4.19 10x6/uL (4.00-5.40); RDW 15.4 % (11.5-14.5); WBC 10.8 10x3/uL (4.8-10.8)
[2018-05-16 04:12] LABS: ANION GAP 10.2 mmol/L (8-16); CALCIUM 8.9 mg/dL (8.5-10.1); CREATININE - SERUM 2.1 mg/dL (0.6-1.3); POTASSIUM - SERUM 3.2 mmol/L (3.5-5.1)
[2018-05-16 11:20] LABS: FUNGUS STAIN Final report (())
[2018-05-17] VITALS (24 sets, daily range): BP systolic 65–180; BP diastolic 64–93
[2018-05-17 05:13] LABS: BASOPHILS 0 % (0-2); EOSINOPHILS 0 % (0-7); HEMOGLOBIN 12.9 g/dL (12-16); IMMATURE GRANULOCYTES 0.5 % (0-5); LYMPHOCYTES 4.4 % (15-50); MCH 28.2 pg (26.0-34.0); MCHC 32.3 g/dL (31.0-37.0); MCV 87.3 fL (80.0-100.0); MEAN PLATELET VOLUME 11.3 fL (7.4-10.4); MONOCYTES 1.8 % (2-11); NEUTROPHILS 93.3 % (40-80); PLATELET COUNT 190 10x3/uL (130-400); RBC 4.58 10x6/uL (4.00-5.40); RDW 15.2 % (11.5-14.5)
[2018-05-17 05:24] LABS: WBC 16.5 10x3/uL (4.8-10.8)
[2018-05-17 05:37] LABS: ANION GAP 11.8 mmol/L (8-16); CALCIUM 8.6 mg/dL (8.5-10.1); CARBON DIOXIDE 39.3 mmol/L (21.0-32.0); POTASSIUM - SERUM 3.1 mmol/L (3.5-5.1)
[2018-05-18] VITALS (24 sets, daily range): BP systolic 136–175; BP diastolic 63–104
[2018-05-18 03:23] LABS: HEMOGLOBIN 12.7 g/dL (12-16); MCH 28.3 pg (26.0-34.0); MCHC 32.6 g/dL (31.0-37.0); MCV 86.9 fL (80.0-100.0); MEAN PLATELET VOLUME 11.4 fL (7.4-10.4); PLATELET COUNT 184 10x3/uL (130-400); RBC 4.49 10x6/uL (4.00-5.40); RDW 14.9 % (11.5-14.5); WBC 26.2 10x3/uL (4.8-10.8)
[2018-05-18 03:35] LABS: CALCIUM 8.9 mg/dL (8.5-10.1); CREATININE - SERUM 1.9 mg/dL (0.6-1.3)
[2018-05-18 03:37] LABS: ANION GAP 7.1 mmol/L (8-16); CARBON DIOXIDE 40.6 mmol/L (21.0-32.0); POTASSIUM - SERUM 3.7 mmol/L (3.5-5.1)
[2018-05-18 03:38] LABS: EOSINOPHILS 1 % (0-7); LYMPHOCYTES 9 % (15-50); MONOCYTES 3 % (2-11); NEUTROPHILS 84 % (40-80)
[2018-05-18 03:39] LABS: PLATELET ESTIMATE NORMAL
[2018-05-18 14:32] LABS: ERYTHROCYTE SEDIMENTATION RATE 136 mm/hr (0-30)
[2018-05-19] VITALS (22 sets, daily range): BP systolic 116–168; BP diastolic 54–76
[2018-05-19 01:42] LABS: APPEARANCE CLEAR (CLEAR); BILIRUBIN NEGATIVE (NEGATIVE); COLOR YELLOW (YELLOW); GLUCOSE NEGATIVE (NEGATIVE); KETONE NEGATIVE (NEGATIVE); NITRITE NEGATIVE (NEGATIVE); PROTEIN TRACE mg/dL (NEGATIVE); SPECIFIC GRAVITY 1.015 (1.005-1.020); UROBILINOGEN NORMAL (NORMAL)
[2018-05-19 01:45] LABS: CREATININE - URINE 50.3 mg/dL (30-125); PROTEIN - URINE 51.4 mg/dL (0.0-11.9)
[2018-05-19 03:52] LABS: BASOPHILS 0 % (0-2); EOSINOPHILS 0 % (0-7); HEMATOCRIT 37.7 % (36.0-48.0); HEMOGLOBIN 12.1 g/dL (12-16); IMMATURE GRANULOCYTES 0.6 % (0-5); LYMPHOCYTES 8.6 % (15-50); MCH 28.1 pg (26.0-34.0); MCHC 32.1 g/dL (31.0-37.0); MCV 87.5 fL (80.0-100.0); MEAN PLATELET VOLUME 10.8 fL (7.4-10.4); MONOCYTES 2.4 % (2-11); NEUTROPHILS 88.4 % (40-80); PLATELET COUNT 181 10x3/uL (130-400); RBC 4.31 10x6/uL (4.00-5.40); RDW 15.1 % (11.5-14.5); WBC 24.6 10x3/uL (4.8-10.8)
[2018-05-19 04:17] LABS: ANION GAP 10.4 mmol/L (8-16); CALCIUM 8.6 mg/dL (8.5-10.1); CARBON DIOXIDE 38.7 mmol/L (21.0-32.0); POTASSIUM - SERUM 4.1 mmol/L (3.5-5.1)
[2018-05-19 04:20] LABS: CREATININE - SERUM 2.7 mg/dL (0.6-1.3)
[2018-05-20] VITALS (24 sets, daily range): BP systolic 88–182; BP diastolic 45–96
[2018-05-20 05:14] LABS: BASOPHILS 0 % (0-2); EOSINOPHILS 0.1 % (0-7); HEMATOCRIT 31.8 % (36.0-48.0); HEMOGLOBIN 10.6 g/dL (12-16); IMMATURE GRANULOCYTES 0.4 % (0-5); LYMPHOCYTES 9.8 % (15-50); MCH 28.6 pg (26.0-34.0); MCHC 33.3 g/dL (31.0-37.0); MCV 85.9 fL (80.0-100.0); MEAN PLATELET VOLUME 11.1 fL (7.4-10.4); MONOCYTES 2.2 % (2-11); NEUTROPHILS 87.5 % (40-80); PLATELET COUNT 156 10x3/uL (130-400); RDW 15.3 % (11.5-14.5); WBC 20.6 10x3/uL (4.8-10.8)
[2018-05-20 05:35] LABS: ALBUMIN 2.3 g/dL (3.4-5.0); ANION GAP 11.6 mmol/L (8-16); BILIRUBIN - TOTAL 0.21 mg/dL (0.2-1.3); CALCIUM 7.6 mg/dL (8.5-10.1); CARBON DIOXIDE 33.9 mmol/L (21.0-32.0); CREATININE - SERUM 3.3 mg/dL (0.6-1.3); POTASSIUM - SERUM 4.5 mmol/L (3.5-5.1); PROTEIN - SERUM 4.4 g/dL (6.4-8.2)
[2018-05-20 13:18] LABS: SPE - A/G RATIO 1.6 (0.7-1.7); SPE - ALBUMIN 3.1 g/dL (2.9-4.4); SPE - ALPHA-1 GLOBULIN 0.2 g/dL (0.0-0.4); SPE - ALPHA-2 GLOBULIN 0.6 g/dL (0.4-1.0); SPE - BETA GLOBULIN 0.7 g/dL (0.7-1.3); SPE - GAMMA GLOBULIN 0.4 g/dL (0.4-1.8); SPE - M-SPIKE Not Observed g/dL (Not Observed)
[2018-05-20 15:23] LABS: UPE RAND - ALBUMIN 44.7 % (()); UPE RAND - ALPHA 1 GLOBULIN 5.2 % (()); UPE RAND - ALPHA 2 GLOBULIN 9.5 % (()); UPE RAND - BETA GLOBULIN 18.3 % (()); UPE RAND - GAMMA GLOBULIN 22.4 % (())
[2018-05-21] VITALS (24 sets, daily range): BP systolic 102–161; BP diastolic 49–81
[2018-05-21 04:23] LABS: BASOPHILS 0 % (0-2); EOSINOPHILS 0 % (0-7); HEMATOCRIT 32.3 % (36.0-48.0); HEMOGLOBIN 10.5 g/dL (12-16); IMMATURE GRANULOCYTES 0.4 % (0-5); LYMPHOCYTES 3.3 % (15-50); MCH 28.2 pg (26.0-34.0); MCHC 32.5 g/dL (31.0-37.0); MCV 86.6 fL (80.0-100.0); MEAN PLATELET VOLUME 12.1 fL (7.4-10.4); MONOCYTES 2.6 % (2-11); NEUTROPHILS 93.7 % (40-80); PLATELET COUNT 111 10x3/uL (130-400); RBC 3.73 10x6/uL (4.00-5.40); RDW 15.3 % (11.5-14.5); WBC 18.6 10x3/uL (4.8-10.8)
[2018-05-21 04:37] LABS: ALBUMIN 2.2 g/dL (3.4-5.0); ANION GAP 13.8 mmol/L (8-16); BILIRUBIN - TOTAL 0.31 mg/dL (0.2-1.3); CALCIUM 7.7 mg/dL (8.5-10.1); CARBON DIOXIDE 31.8 mmol/L (21.0-32.0); CREATININE - SERUM 2.9 mg/dL (0.6-1.3); MAGNESIUM - SERUM 2.2 mg/dL (1.8-2.4); PHOSPHOROUS 7.4 mg/dL (2.5-4.9); POTASSIUM - SERUM 4.6 mmol/L (3.5-5.1); PROTEIN - SERUM 4.6 g/dL (6.4-8.2)
[2018-05-21 08:17] LABS: HEPATITIS C ANTIBODY <0.1 (0.0-0.9)
[2018-05-22] VITALS (22 sets, daily range): BP systolic 95–154; BP diastolic 43–78
[2018-05-22 05:22] LABS: BASOPHILS 0 % (0-2); EOSINOPHILS 0 % (0-7); HEMATOCRIT 29.7 % (36.0-48.0); HEMOGLOBIN 9.6 g/dL (12-16); IMMATURE GRANULOCYTES 0.6 % (0-5); LYMPHOCYTES 5.6 % (15-50); MCHC 32.3 g/dL (31.0-37.0); MCV 86.6 fL (80.0-100.0); MEAN PLATELET VOLUME 12.6 fL (7.4-10.4); MONOCYTES 3.1 % (2-11); NEUTROPHILS 90.7 % (40-80); PLATELET COUNT 147 10x3/uL (130-400); RBC 3.43 10x6/uL (4.00-5.40); RDW 15.8 % (11.5-14.5); WBC 31.5 10x3/uL (4.8-10.8)
[2018-05-22 05:28] LABS: ALBUMIN 2.1 g/dL (3.4-5.0); ANION GAP 13.4 mmol/L (8-16); BILIRUBIN - TOTAL 0.31 mg/dL (0.2-1.3); CALCIUM 7.8 mg/dL (8.5-10.1); CARBON DIOXIDE 29.3 mmol/L (21.0-32.0); CREATININE - SERUM 2.7 mg/dL (0.6-1.3); POTASSIUM - SERUM 4.7 mmol/L (3.5-5.1); PROTEIN - SERUM 4.4 g/dL (6.4-8.2)
[2018-05-23] VITALS (23 sets, daily range): BP systolic 118–192; BP diastolic 41–90
[2018-05-23 05:30] LABS: BASOPHILS 0 % (0-2); EOSINOPHILS 0 % (0-7); HEMATOCRIT 25.1 % (36.0-48.0); HEMOGLOBIN 8.2 g/dL (12-16); IMMATURE GRANULOCYTES 0.8 % (0-5); LYMPHOCYTES 4.5 % (15-50); MCH 28.2 pg (26.0-34.0); MCHC 32.7 g/dL (31.0-37.0); MCV 86.3 fL (80.0-100.0); MEAN PLATELET VOLUME 12.3 fL (7.4-10.4); MONOCYTES 3.9 % (2-11); NEUTROPHILS 90.8 % (40-80); PLATELET COUNT 128 10x3/uL (130-400); RBC 2.91 10x6/uL (4.00-5.40); RDW 15.7 % (11.5-14.5); WBC 25.1 10x3/uL (4.8-10.8)
[2018-05-23 05:41] LABS: ALBUMIN 1.9 g/dL (3.4-5.0); ANION GAP 13.9 mmol/L (8-16); BILIRUBIN - TOTAL 0.29 mg/dL (0.2-1.3); CALCIUM 7.7 mg/dL (8.5-10.1); CARBON DIOXIDE 27.8 mmol/L (21.0-32.0); PROTEIN - SERUM 4.2 g/dL (6.4-8.2)
[2018-05-23 05:53] LABS: CREATININE - SERUM 3.4 mg/dL (0.6-1.3); POTASSIUM - SERUM 5.7 mmol/L (3.5-5.1)
[2018-05-23 10:17] LABS: HEPATITIS BE ANTIGEN Negative (Negative)
[2018-05-24] VITALS (24 sets, daily range): BP systolic 124–158; BP diastolic 45–65
[2018-05-24 05:49] LABS: BASOPHILS 0 % (0-2); EOSINOPHILS 0.1 % (0-7); HEMOGLOBIN 9.3 g/dL (12-16); IMMATURE GRANULOCYTES 0.8 % (0-5); LYMPHOCYTES 4.1 % (15-50); MCH 28.5 pg (26.0-34.0); MCHC 33.2 g/dL (31.0-37.0); MCV 85.9 fL (80.0-100.0); MEAN PLATELET VOLUME 12.2 fL (7.4-10.4); MONOCYTES 2.9 % (2-11); NEUTROPHILS 92.1 % (40-80); PLATELET COUNT 149 10x3/uL (130-400); RBC 3.26 10x6/uL (4.00-5.40); RDW 15.8 % (11.5-14.5); WBC 32.6 10x3/uL (4.8-10.8)
[2018-05-24 06:03] LABS: ALBUMIN 1.9 g/dL (3.4-5.0); BILIRUBIN - TOTAL 0.34 mg/dL (0.2-1.3); CALCIUM 7.9 mg/dL (8.5-10.1); CARBON DIOXIDE 26.5 mmol/L (21.0-32.0); CREATININE - SERUM 3.9 mg/dL (0.6-1.3); PROTEIN - SERUM 4.3 g/dL (6.4-8.2)
[2018-05-24 06:04] LABS: ANION GAP 16.9 mmol/L (8-16)
[2018-05-24 06:05] LABS: POTASSIUM - SERUM 6.4 mmol/L (3.5-5.1)
[2018-05-25] VITALS (24 sets, daily range): BP systolic 98–158; BP diastolic 48–62
[2018-05-25 05:17] LABS: BASOPHILS 0 % (0-2); EOSINOPHILS 0.1 % (0-7); HEMATOCRIT 24.8 % (36.0-48.0); HEMOGLOBIN 8.3 g/dL (12-16); IMMATURE GRANULOCYTES 0.6 % (0-5); LYMPHOCYTES 3.9 % (15-50); MCH 28.4 pg (26.0-34.0); MCHC 33.5 g/dL (31.0-37.0); MCV 84.9 fL (80.0-100.0); MEAN PLATELET VOLUME 11.6 fL (7.4-10.4); NEUTROPHILS 93.4 % (40-80); PLATELET COUNT 144 10x3/uL (130-400); RBC 2.92 10x6/uL (4.00-5.40); RDW 15.7 % (11.5-14.5); WBC 31.2 10x3/uL (4.8-10.8)
[2018-05-25 05:29] LABS: ALBUMIN 1.7 g/dL (3.4-5.0); ANION GAP 15.8 mmol/L (8-16); BILIRUBIN - TOTAL 0.29 mg/dL (0.2-1.3); CALCIUM 8.1 mg/dL (8.5-10.1); CARBON DIOXIDE 24.7 mmol/L (21.0-32.0); CREATININE - SERUM 4.3 mg/dL (0.6-1.3)
[2018-05-25 05:41] LABS: POTASSIUM - SERUM 7.5 mmol/L (3.5-5.1)
[2018-05-26] VITALS (24 sets, daily range): BP systolic 121–175; BP diastolic 51–69
[2018-05-26 04:46] LABS: BASOPHILS 0 % (0-2); EOSINOPHILS 0 % (0-7); HEMATOCRIT 24.4 % (36.0-48.0); HEMOGLOBIN 8.1 g/dL (12-16); IMMATURE GRANULOCYTES 0.5 % (0-5); LYMPHOCYTES 2.5 % (15-50); MCH 28.2 pg (26.0-34.0); MCHC 33.2 g/dL (31.0-37.0); MEAN PLATELET VOLUME 10.9 fL (7.4-10.4); MONOCYTES 2.9 % (2-11); NEUTROPHILS 94.1 % (40-80); PLATELET COUNT 150 10x3/uL (130-400); RBC 2.87 10x6/uL (4.00-5.40); RDW 16.1 % (11.5-14.5); WBC 32.4 10x3/uL (4.8-10.8)
[2018-05-26 05:34] LABS: ALBUMIN 1.7 g/dL (3.4-5.0); ANION GAP 20.3 mmol/L (8-16); BILIRUBIN - TOTAL 0.36 mg/dL (0.2-1.3); CALCIUM 7.9 mg/dL (8.5-10.1); CARBON DIOXIDE 24.1 mmol/L (21.0-32.0); CREATININE - SERUM 4.6 mg/dL (0.6-1.3); PROTEIN - SERUM 4.2 g/dL (6.4-8.2)
[2018-05-26 05:49] LABS: POTASSIUM - SERUM 7.4 mmol/L (3.5-5.1)
[2018-05-27] VITALS (23 sets, daily range): BP systolic 119–166; BP diastolic 49–78
[2018-05-27 05:51] LABS: RBC 2.41 10x6/uL (4.00-5.40); WBC 25.4 10x3/uL (4.8-10.8)
[2018-05-27 05:53] LABS: BASOPHILS 0 % (0-2); EOSINOPHILS 0.2 % (0-7); HEMATOCRIT 20.5 % (36.0-48.0); IMMATURE GRANULOCYTES 0.5 % (0-5); LYMPHOCYTES 4.5 % (15-50); MCH 28.6 pg (26.0-34.0); MCHC 33.7 g/dL (31.0-37.0); MCV 85.1 fL (80.0-100.0); MEAN PLATELET VOLUME 11.4 fL (7.4-10.4); MONOCYTES 2.9 % (2-11); NEUTROPHILS 91.9 % (40-80); PLATELET COUNT 130 10x3/uL (130-400); RDW 15.9 % (11.5-14.5)
[2018-05-27 05:54] LABS: HEMOGLOBIN 6.9 g/dL (12-16)
[2018-05-27 06:20] LABS: ALBUMIN 1.6 g/dL (3.4-5.0); ANION GAP 21.5 mmol/L (8-16); BILIRUBIN - TOTAL 0.3 mg/dL (0.2-1.3); CALCIUM 7.9 mg/dL (8.5-10.1); CARBON DIOXIDE 24.5 mmol/L (21.0-32.0); CREATININE - SERUM 4.8 mg/dL (0.6-1.3); PROTEIN - SERUM 3.7 g/dL (6.4-8.2)
[2018-05-28] VITALS (12 sets, daily range): BP systolic 125–155; BP diastolic 48–62
[2018-05-28 05:08] LABS: BASOPHILS 0 % (0-2); EOSINOPHILS 0.4 % (0-7); IMMATURE GRANULOCYTES 0.4 % (0-5); LYMPHOCYTES 4.4 % (15-50); MCH 28.8 pg (26.0-34.0); MCHC 33.7 g/dL (31.0-37.0); MCV 85.6 fL (80.0-100.0); MONOCYTES 2.8 % (2-11); PLATELET COUNT 112 10x3/uL (130-400); RBC 2.22 10x6/uL (4.00-5.40); RDW 15.7 % (11.5-14.5); WBC 19.8 10x3/uL (4.8-10.8)
[2018-05-28 05:22] LABS: ANION GAP 19.4 mmol/L (8-16); CALCIUM 7.6 mg/dL (8.5-10.1); CARBON DIOXIDE 25.1 mmol/L (21.0-32.0)
[2018-05-28 05:31] LABS: HEMOGLOBIN 6.4 g/dL (12-16); POTASSIUM - SERUM 6.5 mmol/L (3.5-5.1)
[2018-05-28 19:12] LABS: UPE - ALPHA 1 GLOBULIN 7.6 % (NOT ESTAB.); UPE - ALPHA 2 GLOBULIN 12.4 % (NOT ESTAB.); UPE - BETA GLOBULIN 18.5 % (NOT ESTAB.)
[2018-06-11 08:28] LABS: FUNGUS MYCOLOGY CULTURE Final report (())
[2018-07-05 18:08] LABS: ACID FAST CULTURE Negative (()); ACID FAST SMEAR Negative (())
== END 2018-05-28 15:04 | disposition hospice, inpatient (51) | DRG 291 ==
LOC: D.ER 17:04 → D.ICU 05-10 00:40 → D.M2 05-10 00:40 → D.ICU 05-11 06:57
PROVIDERS: Emergency Medicine; Family Medicine; Internal Medicine Cardiovascular Disease; Internal Medicine Nephrology; Internal Medicine Pulmonary Disease; Specialist
PROC: 5A09357 Assistance with Respiratory Ventilation, Less than 24 Consecutive Hours, Continuous Positive Airway Pressure (ICD-10-PCS; principal; 2018-05-10)
PROC: 0W9B30Z Drainage of Left Pleural Cavity with Drainage Device, Percutaneous Approach (ICD-10-PCS; 2018-05-14)
PROC: 05HM33Z Insertion of Infusion Device into Right Internal Jugular Vein, Percutaneous Approach (ICD-10-PCS; 2018-05-19)
PROC: 0W9B30Z Drainage of Left Pleural Cavity with Drainage Device, Percutaneous Approach (ICD-10-PCS; 2018-05-22)
DX: I13.0 Hypertensive heart and chronic kidney disease with heart failure and stage 1 through stage 4 chronic kidney disease, or unspecified chronic kidney disease (principal); I50.33 Acute on chronic diastolic (congestive) heart failure; J96.21 Acute and chronic respiratory failure with hypoxia; J96.22 Acute and chronic respiratory failure with hypercapnia; J18.9 Pneumonia, unspecified organism; J44.1 Chronic obstructive pulmonary disease with (acute) exacerbation; J81.1 Chronic pulmonary edema; J90 Pleural effusion, not elsewhere classified; Z68.1 Body mass index [BMI] 19.9 or less, adult; J93.9 Pneumothorax, unspecified; N17.9 Acute kidney failure, unspecified; J93.82 Other air leak; N18.9 Chronic kidney disease, unspecified; Z87.891 Personal history of nicotine dependence; I27.20 Pulmonary hypertension, unspecified; I42.9 Cardiomyopathy, unspecified; R63.4 Abnormal weight loss; Z95.5 Presence of coronary angioplasty implant and graft; Z99.81 Dependence on supplemental oxygen; Z91.11 Patient's noncompliance with dietary regimen; Z66 Do not resuscitate; D63.1 Anemia in chronic kidney disease; E87.5 Hyperkalemia

== ENCOUNTER 2018-05-28 14:48 | Inpatient (IN) | payer OTHER ==
[~2018-05-28] VITALS: Ht 157.5 cm; Wt 62.6 kg
[~2018-05-28 14:48] MED LIST changes: +LEXAPRO10 MG PO
[2018-05-28 15:30] VITALS: BP 132/62
[2018-05-28 15:35] VITALS: BP 132/62; BMI 25.2
[2018-05-28 19:00] VITALS: BP 140/49
[2018-05-28 23:00] VITALS: BP 156/54
[2018-05-29 03:00] VITALS: BP 148/56
[2018-05-29 12:30] VITALS: BP 144/44
[2018-05-29 20:00] VITALS: BP 158/51
[2018-05-30 09:23] VITALS: BP 152/56
[2018-05-30 21:37] VITALS: BP 136/42
[2018-05-31 12:29] VITALS: BP 142/35
[2018-05-31 20:51] VITALS: BP 126/26
[2018-07-28 13:31] VITALS: Ht 157.5 cm; Wt 62.6 kg
== END 2018-05-31 23:37 | DRG 951 ==
LOC: D.ICU 14:48 → D.M2 15:11
DX: Z51.5 Encounter for palliative care (principal)